=== PATIENT | female | born 1995 | race Caucasian/White ===

== ENCOUNTER 2016-05-15 11:57 | Emergency (ER) | payer OTHER ==
--- NOTE | 2016-05-15 15:25 | EDDOCDS ---
Nurse's Notes [facility] Name: Irina Vincent Age: 20 yrs Sex: Female : 1995 Arrival Date: 05/15/2016 Time: 11:57 Bed TR8 Private MD: Sawyer Haines FPA Diagnosis: Labyrinthitis Presentation: 05/15 12:03 Presenting complaint: Patient states: Intermittent headaches since Friday with nausea mlb1 and double vision also reports "wooshing in ears for the past two months" seen at [facility] on Friday sent here by PCP for "MRI". This patient has no additional risk factors. Adult Sepsis Screening: The patient does not have new or worsening altered mentation. Patient's respiratory rate is less than 22. Systolic blood pressure is greater than 100. Patient has a qSOFA score of 0- Negative Sepsis Screen. Suicide/Homicide risk assessment- the patient denies having any suicidal and/or homicidal ideations and does not present with any other emotional, behavioral or mental health complaints. 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 Transition of care: patient was not received from another setting of care. 12:03 Acuity: DANIELLE Level 3 mlb1 12:03 Method Of Arrival: Walkin/Carried/Asstd mlb1 Triage Assessment: 12:09 Headache History: This patient has a history of headaches and the character of this mlb1 headache is like all previous headaches. General: Appears in no apparent distress, Behavior is appropriate for age, cooperative. Pain: Denies pain. HIV screening NA for this visit Offered previously. Neurological: Level of Consciousness is awake, alert, Reports blurred vision dizziness. 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 benzonatate 100 mg oral cap 1 cap 3 times per day 2. Excedrin Migraine 250-250-65 mg Oral tab as needed (Last dose: 05/15/2016 10:30) - PMHx: none; - PSHx: none; - Social history: Smoking status: Patient states was never smoker of tobacco. No barriers to communication noted, The patient speaks fluent Moroccan, Speaks appropriately for age. - Family history: Not pertinent. - : The pt / caregiver states he / she is not on anticoagulants. Home medication list is obtained from the patient. - Exposure Risk Screening:: None identified. Screenin:23 Screening information is obtained from the patient. Fall risk: No risks identified. mcp Assistance ADL's: requires no assistance with activities of daily living. Abuse/DV Screen: The patient / caregiver reports he/she is: not in a situation that causes fear, pain or injury. Nutritional screening: No deficits noted. Advance Directives: There is no active DNR order. home support is adequate. Assessment: 15:22 General: Appears in no apparent distress, comfortable, Behavior is cooperative. Pain: mcp Location: head Pain currently is 6 out of 10 on a pain scale. Neurological: Level of Consciousness is awake, alert, Oriented to person, place, time, Moves all extremities. Speech is normal, Reports headache. Respiratory: Airway is patent Respiratory effort is even, unlabored. Derm: Skin is pink, warm & dry. Vital Signs: 12:00 BP 155 / 98; Pulse 89; Resp 18; Temp 97.0; Pulse Ox 99% ; Weight 86.18 kg; Height 5 ft. elp 4 in. (162.56 cm); 12:00 Body Mass Index 32.61 (86.18 kg, 162.56 cm) elp Vitals: 12:00 Log In Time: May 15, 2016 at 11:59. el ED Course: 11:58 Patient visited by Sheeba Lopez PCA. elp 11:58 Patient moved to Waiting elp 12:00 Patient visited by Sheeba Lopez PCA. elp 12:00 Sawyer Haines is Private Physician. elp 12:00 Patient moved to Pre RCE elp 12:03 Patient visited by Sawyer Broussard RN. mlb1 12:07 Triage Initiated mlb1 12:11 Patient visited by Sawyer Broussard RN. mlb1 14:29 Patient moved to Triage 1 cmb 14:55 [facility] btw 14:55 Yari Siegel MD is Attending Physician. btw 14:55 Patient visited by Ed Ashley PA. btw 15:23 The patient / caregiver is instructed regarding the plan of care and ED course. Patient mcp has correct armband on for positive identification. Bed in low position. Call light in reach. Adult w/ patient. 15:23 Patient moved to TR8 cmb 15:23 No IV's were initiated during this patient's visit. No procedures done that require mcp assistance. 15:24 [facility] Payment Agreement was scanned into [employer] and attached to record. trevin Order Results: There are currently no results for this order. Outcome: 15:15 Discharge ordered by Provider. btw 15:23 Discharge Assessment: patient administered narcotics - no. The following High Risk [facility] Discharge criteria are identified: None. Discharged to home ambulatory, with parent. Condition: stable. Discharge instructions given to patient, parents Instructed on discharge instructions, follow up and referral plans. medication usage, Demonstrated understanding of instructions, medications, Pt was receptive of discharge instructions/ teaching. Prescriptions given X 2. No special radiology studies were completed. Property sent home with patient. 15:24 Patient left the ED. [facility] Signatures: Estefani Jackson, RN Sawyer Warren mcp RN RN mlb1 Ed Ashely PA PA btw Soumya Nunez Erin, PCA PCA elp Beck, Gabriela gjb ROBERT
--- NOTE | 2016-05-15 15:25 | EDDOCDS ---
Physician Documentation [facility] Name: Irina Vincent Age: 20 yrs Sex: Female : 1995 Arrival Date: 05/15/2016 Time: 11:57 Bed TR8 Private MD: Sawyer Haines FPA Disposition: 05/15/16 15:15 Discharged to Home/Self Care. Impression: Labyrinthitis. - Condition is Stable. - Discharge Instructions: Labyrinthitis, [id number]. - Prescriptions for Medrol (Armand) 4 mg Oral Tablets, Dose Pack - take 1 Pack by ORAL route as directed - follow package instructions; 1 packet. azelastine 137 mcg (0.1 %) Nasal Aerosol, [place] - spray 2 spray by INTRANASAL route 2 times per day each nostril; 1 bottle. - Medication Reconciliation, Local Pharmacy Hours form. - Follow up: Private Physician; When: Call to arrange an appointment; Reason: Further diagnostic work-up, Recheck today's complaints, Continuance of care. - Problem is new. - Symptoms are unchanged. Historical: - Allergies: no known allergies; - Home Meds: 1. benzonatate 100 mg oral cap 1 cap 3 times per day 2. Excedrin Migraine 250-250-65 mg Oral tab as needed (Last dose: 05/15/2016 10:30) - PMHx: none; - PSHx: none; - Social history: Smoking status: Patient states was never smoker of tobacco. No barriers to communication noted, The patient speaks fluent Occitan, Speaks appropriately for age. - Family history: Not pertinent. - : The pt / caregiver states he / she is not on anticoagulants. Home medication list is obtained from the patient. - Exposure Risk Screening:: None identified. 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 4 in. (162.56 cm); 12:00 Body Mass Index 32.61 (86.18 kg, 162.56 cm) elp MDM: 15:24 [facility] Payment Agreement was scanned into [employer] and attached to record. gjb 15:24 Financial registration complete. trevin Signatures: Estefani Jackson RN RN mcp Sawyer Broussard RN RN mlb1 Ed Ashley PA PA btw Beck, Gabriela gjb The chart was reviewed and I authenticate all verbal orders and agree with the evaluation and treatment provided.Attachments: 15:24 [facility] Payment Agreement trevin MTDD
--- NOTE | 2016-05-17 16:25 | EDDOCDS ---
Physician Documentation [facility] Name: Irina Vincent Age: 20 yrs Sex: Female : 1995 Arrival Date: 05/15/2016 Time: 11:57 Bed TR8 Private MD: Sawyer Haines FPA Disposition: 05/15/16 15:15 Discharged to Home/Self Care. Impression: Labyrinthitis. - Condition is Stable. - Discharge Instructions: Labyrinthitis, [id number]. - Prescriptions for Medrol (Armand) 4 mg Oral Tablets, Dose Pack - take 1 Pack by ORAL route as directed - follow package instructions; 1 packet. azelastine 137 mcg (0.1 %) Nasal Aerosol, [place] - spray 2 spray by INTRANASAL route 2 times per day each nostril; 1 bottle. - Medication Reconciliation, Local Pharmacy Hours form. - Follow up: Private Physician; When: Call to arrange an appointment; Reason: Further diagnostic work-up, Recheck today's complaints, Continuance of care. - Problem is new. - Symptoms are unchanged. Historical: - Allergies: no known allergies; - Home Meds: 1. benzonatate 100 mg oral cap 1 cap 3 times per day 2. Excedrin Migraine 250-250-65 mg Oral tab as needed (Last dose: 05/15/2016 10:30) - PMHx: none; - PSHx: none; - Social history: Smoking status: Patient states was never smoker of tobacco. No barriers to communication noted, The patient speaks fluent [place], Speaks appropriately for age. - Family history: Not pertinent. - : The pt / caregiver states he / she is not on anticoagulants. Home medication list is obtained from the patient. - Exposure Risk Screening:: None identified. 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 4 in. (162.56 cm); 12:00 Body Mass Index 32.61 (86.18 kg, 162.56 cm) elp MDM: 15:24 [facility] Payment Agreement was scanned into [employer] and attached to record. gjb 15:24 Financial registration complete. gjb 05/16 12:18 T-Sheet-- Draft Copy was scanned into [employer] and attached to record. gb Signatures: Estefani Jackson, RN RN Abbie Rendon, Price Reg Sawyer Leslie RN RN mlb1 Ed Ashley PA PA btw Beck, Gabriela gj The chart was reviewed and I authenticate all verbal orders and agree with the evaluation and treatment provided.Attachments: 05/15 15:24 [facility] [place] b 05/16 12:18 T-Sheet-- Draft Copy gb Chart Complete MTDD
--- NOTE | 2016-05-17 16:25 | EDDOCDS ---
Nurse's Notes [facility] Name: Irina Vincent Age: 20 yrs Sex: Female : 1995 Arrival Date: 05/15/2016 Time: 11:57 Bed TR8 Private MD: Sawyer Haines FPA Diagnosis: Labyrinthitis Presentation: 05/15 12:03 Presenting complaint: Patient states: Intermittent headaches since Friday with nausea mlb1 and double vision also reports "wooshing in ears for the past two months" seen at [facility] on Friday sent here by PCP for "MRI". This patient has no additional risk factors. Adult Sepsis Screening: The patient does not have new or worsening altered mentation. Patient's respiratory rate is less than 22. Systolic blood pressure is greater than 100. Patient has a qSOFA score of 0- Negative Sepsis Screen. Suicide/Homicide risk assessment- the patient denies having any suicidal and/or homicidal ideations and does not present with any other emotional, behavioral or mental health complaints. 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 Transition of care: patient was not received from another setting of care. 12:03 Acuity: DANIELLE Level 3 mlb1 12:03 Method Of Arrival: Walkin/Carried/Asstd mlb1 Triage Assessment: 12:09 Headache History: This patient has a history of headaches and the character of this mlb1 headache is like all previous headaches. General: Appears in no apparent distress, Behavior is appropriate for age, cooperative. Pain: Denies pain. HIV screening NA for this visit Offered previously. Neurological: Level of Consciousness is awake, alert, Reports blurred vision dizziness. 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 benzonatate 100 mg oral cap 1 cap 3 times per day 2. Excedrin Migraine 250-250-65 mg Oral tab as needed (Last dose: 05/15/2016 10:30) - PMHx: none; - PSHx: none; - Social history: Smoking status: Patient states was never smoker of tobacco. No barriers to communication noted, The patient speaks fluent Botswanan, Speaks appropriately for age. - Family history: Not pertinent. - : The pt / caregiver states he / she is not on anticoagulants. Home medication list is obtained from the patient. - Exposure Risk Screening:: None identified. Screenin:23 Screening information is obtained from the patient. Fall risk: No risks identified. mcp Assistance ADL's: requires no assistance with activities of daily living. Abuse/DV Screen: The patient / caregiver reports he/she is: not in a situation that causes fear, pain or injury. Nutritional screening: No deficits noted. Advance Directives: There is no active DNR order. home support is adequate. Assessment: 15:22 General: Appears in no apparent distress, comfortable, Behavior is cooperative. Pain: mcp Location: head Pain currently is 6 out of 10 on a pain scale. Neurological: Level of Consciousness is awake, alert, Oriented to person, place, time, Moves all extremities. Speech is normal, Reports headache. Respiratory: Airway is patent Respiratory effort is even, unlabored. Derm: Skin is pink, warm & dry. Vital Signs: 12:00 BP 155 / 98; Pulse 89; Resp 18; Temp 97.0; Pulse Ox 99% ; Weight 86.18 kg; Height 5 ft. elp 4 in. (162.56 cm); 12:00 Body Mass Index 32.61 (86.18 kg, 162.56 cm) elp Vitals: 12:00 Log In Time: May 15, 2016 at 11:59. el ED Course: 11:58 Patient visited by Sheeba Lopez PCA. elp 11:58 Patient moved to Waiting elp 12:00 Patient visited by Sheeba Lopez PCA. elp 12:00 Sawyer Haines is Private Physician. elp 12:00 Patient moved to Pre RCE elp 12:03 Patient visited by Sawyer Broussard RN. mlb1 12:07 Triage Initiated mlb1 12:11 Patient visited by Sawyer Brosusard RN. mlb1 14:29 Patient moved to Triage 1 cmb 14:55 [facility]. btw 14:55 Yari Siegel MD is Attending Physician. btw 14:55 Patient visited by Ed Ashley PA. btw 15:23 The patient / caregiver is instructed regarding the plan of care and ED course. Patient mcp has correct armband on for positive identification. Bed in low position. Call light in reach. Adult w/ patient. 15:23 Patient moved to TR8 cmb 15:23 No IV's were initiated during this patient's visit. No procedures done that require mcp assistance. 15:24 [facility] [place] was scanned into [employer] and attached to record. gjromel 15:31 Patient name changed from Irina\\S\\A\\S\\Cary\\S\\ to Irina\\S\\ \\S\\Cary. EDMS 05/16 12:18 T-Sheet-- Draft Copy was scanned into [employer] and attached to record. gb Order Results: There are currently no results for this order. Outcome: 05/15 15:15 Discharge ordered by Provider. btw 15:23 Discharge Assessment: patient administered narcotics - no. The following High Risk [facility] Discharge criteria are identified: None. Discharged to home ambulatory, with parent. Condition: stable. Discharge instructions given to patient, parents Instructed on discharge instructions, follow up and referral plans. medication usage, Demonstrated understanding of instructions, medications, Pt was receptive of discharge instructions/ teaching. Prescriptions given X 2. No special radiology studies were completed. Property sent home with patient. 15:24 Patient left the ED. [facility] Signatures: Dis[facility] Estefani Jackson, RN RN Abbie Rendon, Sawyer Allen RN RN mlb1 Ed Ashley PA PA btw Soumya Nunez Erin, PCA PCA elp Beck, Gabriela [facility] Chart Complete MTDD
--- NOTE | 2016-05-17 16:25 | EDDOCDS ---
Physician Documentation [facility] Name: Irina Vincent Age: 20 yrs Sex: Female : 1995 Arrival Date: 05/15/2016 Time: 11:57 Bed TR8 Private MD: Sawyer Haines FPA Disposition: 05/15/16 15:15 Discharged to Home/Self Care. Impression: Labyrinthitis. - Condition is Stable. - Discharge Instructions: Labyrinthitis, [id number]. - Prescriptions for Medrol (Armand) 4 mg Oral Tablets, Dose Pack - take 1 Pack by ORAL route as directed - follow package instructions; 1 packet. azelastine 137 mcg (0.1 %) Nasal Aerosol, [place] - spray 2 spray by INTRANASAL route 2 times per day each nostril; 1 bottle. - Medication Reconciliation, Local Pharmacy Hours form. - Follow up: Private Physician; When: Call to arrange an appointment; Reason: Further diagnostic work-up, Recheck today's complaints, Continuance of care. - Problem is new. - Symptoms are unchanged. Historical: - Allergies: no known allergies; - Home Meds: 1. benzonatate 100 mg oral cap 1 cap 3 times per day 2. Excedrin Migraine 250-250-65 mg Oral tab as needed (Last dose: 05/15/2016 10:30) - PMHx: none; - PSHx: none; - Social history: Smoking status: Patient states was never smoker of tobacco. No barriers to communication noted, The patient speaks fluent Polish, Speaks appropriately for age. - Family history: Not pertinent. - : The pt / caregiver states he / she is not on anticoagulants. Home medication list is obtained from the patient. - Exposure Risk Screening:: None identified. 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 4 in. (162.56 cm); 12:00 Body Mass Index 32.61 (86.18 kg, 162.56 cm) elp MDM: 15:24 [facility] Payment Agreement was scanned into [employer] and attached to record. gjb 15:24 Financial registration complete. gjb 05/16 12:18 T-Sheet-- Draft Copy was scanned into [employer] and attached to record. gb Signatures: Estefani Jackson, RN RN Abbie Rendon, Price Reg Sawyer Leslie RN RN mlb1 Ed Ashley PA PA btw Beck, Gabriela gj The chart was reviewed and I authenticate all verbal orders and agree with the evaluation and treatment provided.Attachments: 05/15 15:24 [facility] [place] Payment Agreement b 05/16 12:18 T-Sheet-- Draft Copy gb Chart Complete MTDD
== END 2016-05-15 15:24 | disposition home or self-care (01) ==
LOC: M ED 11:57
DX: H83.09 Labyrinthitis, unspecified ear (principal); Z79.899 Other long term (current) drug therapy

== ENCOUNTER 2016-05-20 16:42 | Emergency (ER) | payer OTHER ==
--- NOTE | 2016-05-20 20:00 | REPUSA ---
MRV of the brain Clinical history: papilledema, blurred vision. Technique: time of flight MRV images of the brain were obtained without administration of contrast. No comparison is available. Findings: The venous structures demonstrate normal caliber and contour. No intraluminal thrombus is a ppreciated. There is no discrete evidence of clinically significant stenosis or obstruction. Impression: Unremarkable MRV examination of the brain.
--- NOTE | 2016-05-20 20:00 | REPUSA ---
MRA of the brain Clinical history: blurred vision. Technique: Yquh-eq-joyldy MRA images of the brain were obtained without administration of contrast. 3 -D MIP images were also obtained. Findings: The vascular structures extending from the distal carotid and vertebrobasilar arterial syst ems, through the tetlin of [place], demonstrate normal caliber and contour. There is no evidence of an eurysm, stenosis, or thrombosis. Impression: Unremarkable MRA examination of the brain.
--- NOTE | 2016-05-20 20:10 | REPUSA ---
MRI of the brain without contrast Clinical history: blurred vision. Comparison: none. Technique: Multiecho multiplanar MRI images of the brain were obtained without administration of cont rast. Diffusion weighted images with ADC mapping was also obtained. Findings: The ventricles and sulci are symmetric bilaterally. The brain parenchyma demonstrates uniform and nor mal signal on all sequences. There is no midline shift, mass effect, or extra-axial fluid collection. The midline intracranial structures do not demonstrate any gross abnormalities. The cervical cranial junction is intact. The orbits are unremarkable. The visualized paranasal sinuses and mastoid air ce lls are clear. The osseous structures and superficial soft tissues are unremarkable. The vascular str uctures demonstrate appropriate flow voids. Impression: Normal MRI of the Brain.
[2016-05-20] MEDS ORDERED: AcetaZOLAMIDE 500MG INJECTION (J1120) IV ONE (23:45)
[2016-05-21 00:49] LABS: RBC CSF AUTO 2878 /mm3 (0-0); WBC CSF AUTO 32 /mm3 (0-10)
[2016-05-21 00:51] LABS: APPEARANCE, CSF CLEAR (CLEAR); COLOR, CSF COLORLESS (COLORLESS); CSF DIFF IF INDICATED? YES (NO); CSF TUBE# CELL CNT TUBE 1
[2016-05-21 00:53] LABS: CSF DILUENT LOT # 6109
[2016-05-21 00:54] LABS: GLUCOSE CSF 51 MG/DL (40-75)
[2016-05-21 01:05] LABS: ANION GAP 11 MEQ/L (8-16); BLOOD UREA NITROGEN 11 MG/DL (7-18); CALCIUM LEVEL 8.1 MG/DL (8.5-10.1); CARBON DIOXIDE LEVEL 25 MEQ/L (21-32); CHLORIDE LEVEL 102 MEQ/L (98-107); GLUCOSE, FASTING 186 MG/DL (70-105); POTASSIUM SERUM 3.4 MEQ/L (3.5-5.1); SODIUM LEVEL 138 MEQ/L (136-145)
--- NOTE | 2016-05-21 02:59 | EDDOCDS ---
Physician Documentation [facility] [place] [facility] Name: Irina Vincent Age: 20 yrs Sex: Female : 1995 Arrival Date: 05/20/2016 Time: 16:42 Bed 4 Private MD: Sawyer Haines FPA Disposition: 05/20 19:24 I have independently interviewed and examined the patient, and I agree with the pc investigation, diagnosis and treatment plan as documented by the Resident. Disposition: 05/21/16 02:33 Discharged to Home/Self Care. Impression: Benign intracranial hypertension. - Condition is Stable. - Discharge Instructions: Idiopathic Intracranial Hypertension. - Prescriptions for acetazolamide 250 mg Oral Tablet - take 2 tablet by ORAL route 2 times per day; 60 tablet. - Medication Reconciliation, Local Pharmacy Hours form. - Follow up: Enriqueta Ramirez; When: Call to arrange an appointment; Reason: Continuance of care. Follow up: Private Physician; When: Call to arrange an appointment; Reason: Continuance of care. - Problem is an acute exacerbation. - Symptoms have improved. Historical: - Allergies: no known allergies; - Home Meds: 1. Excedrin Migraine 250-250-65 mg Oral tab as needed - PMHx: none; - PSHx: none; - Social history: Smoking status: Patient/guardian denies using No barriers to communication noted, The patient speaks fluent Slovak. - Family history: Not pertinent. - : The pt / caregiver states he / she is not on anticoagulants. Home medication list is obtained from the patient. - Exposure Risk Screening:: None identified. 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 4 in. (162.56 cm) (R); Pain 3/10; 20:18 BP 144 / 75; Pulse 81; Resp 18; Pulse Ox 98% on R/A; mgs 22:40 BP 138 / 76 (auto/); mgs 22:42 Pulse 92 MON; Pulse Ox 98% ; mgs 22:54 BP 136 / 75 (auto/); mgs 22:54 Pulse 84 MON; Pulse Ox 98% ; mgs 23:09 BP 137 / 73 (auto/); mgs 23:09 Pulse 94 MON; Pulse Ox 96% ; mgs 23:24 BP 118 / 62 (auto/); mgs 23:24 Pulse 84 MON; Pulse Ox 96% ; mgs 23:39 BP 123 / 66 (auto/); mgs 23:39 Pulse 78 MON; Pulse Ox 97% ; mgs 23:54 BP 130 / 69 (auto/); mgs 23:54 Pulse 78 MON; Pulse Ox 96% ; mgs 05/21 00:09 BP 122 / 65 (auto/); mgs 00:09 Pulse 78 MON; Pulse Ox 97% ; mgs 00:24 Pulse 76 MON; Pulse Ox 98% ; mgs 00:24 BP 121 / 67 (auto/); mgs 00:39 BP 125 / 64 (auto/); mgs 00:39 Pulse 80 MON; Pulse Ox 97% ; mgs 00:54 BP 137 / 66 (auto/); mgs 00:56 Pulse 82 MON; Pulse Ox 98% ; mgs 01:09 BP 131 / 67 (auto/); mgs 01:09 Pulse 72 MON; Pulse Ox 97% ; mgs 01:24 BP 128 / 67 (auto/); mgs 01:24 Pulse 76 MON; Pulse Ox 96% ; mgs 01:39 BP 126 / 70 (auto/); mgs 01:39 Pulse 94 MON; Pulse Ox 96% ; mgs 01:54 BP 128 / 68 (auto/); mgs 01:54 Pulse 92 MON; Pulse Ox 96% ; mgs 02:36 BP 121 / 62; Pulse 87; Resp 18; Temp 97.8(TE); Pulse Ox 96% on R/A; Pain 0/10; annie 05/20 16:45 Body Mass Index 32.61 (86.18 kg, 162.56 cm) gr2 MDM: 05/20 18:11 MRI Screening Tool - Place on chart, inform RN ordered. jo4 18:11 -MRA-Brain without contrast Ordered. EDMS 18:12 -MRI-Brain without Ordered. EDMS 18:14 Misc Authorization Manager Order ordered. jo4 18:16 MRI Screening Tool - Place on chart, inform RN complete. mk4 18:18 Misc Authorization Manager Order complete. jlf 18:19 MRA BRAIN W/O CONTRAST Ordered. EDMS 18:36 Financial registration complete. zo 20:09 [facility] Payment Agreement was scanned into Tracky and attached to record. zo 22:06 UCG by Nursing ordered. mm11 23:28 BMP Ordered. EDMS 23:28 Magnesium Level Ordered. EDMS 23:35 acetaZOLAMIDE 500 mg IV at calculated rate once ordered. mm11 23:37 Written Provider Order was scanned into [employer] and attached to record. ml3 23:41 Other: PROGRESS NOTE was scanned into Tracky and attached to record. ml3 23:42 IV Saline Lock ordered. mgs 23:42 d5-1/2 NS 500 ml blolus once 500 ml IV at bolus once ordered. mgs 23:42 d5-1/2 NS 500 ml at 150 ml/hr 500 ml IV at 150 mL/hr once ordered. mgs 05/21 00:01 C-PEPTIDE Ordered. EDMS 00:01 CELL COUNT/DIFF CSF Ordered. EDMS 00:01 CSF GLUCOSE Ordered. EDMS 00:01 CSF T PROTEIN Ordered. EDMS 00:01 CSF CULTURE AND GRAM STAIN Ordered. EDMS 00:08 Written Provider Order was scanned into Track[employer] and attached to record. ml3 00:20 INSULIN LEVEL Ordered. EDMS Point of Care Testing: Urine : 05/20 22:23 hCG Reading: Negative; mgs 22:23 Exp: 01/2018; Lot #: [id number]; mgs Ranges: Administered Medications: 05/21 00:32 Drug: acetaZOLAMIDE 500 mg Route: IV; Rate: calculated rate; Site: right antecubital; mgs 00:32 Drug: d5-1/2 NS 500 ml blolus once 500 ml Route: IV; Rate: bolus; Site: right mgs antecubital; 00:52 Drug: d5-1/2 NS 500 ml at 150 ml/hr 500 ml Route: IV; Rate: 150 mL/hr; Site: right mgs antecubital; Signatures: Dispatcher MedHost EDNH Osman Mahajan MD MD pc Scott, Debra, RN RN La Nena Claudio, [facility] ml3 Oj Moreira Matthew, DO DO mm11 Li Copeland RN RN mk4 Jeison Wright, ADULT SPECIALIST ADULT SPECIALIST jlf Karan Jay,RN RN s Fe Allen DO DO jo4 The chart was reviewed and I authenticate all verbal orders and agree with the evaluation and treatment provided.Attachments: 05/20 20:09 [facility] Payment Agreement zo 23:37 Written Provider Order ml3 05/21 00:08 Written Provider Order ml3 MTDD
--- NOTE | 2016-05-21 02:59 | EDDOCDS ---
Nurse's Notes [facility] Name: Irina Vincent Age: 20 yrs Sex: Female : 1995 Arrival Date: 05/20/2016 Time: 16:42 Bed 4 Private MD: Sawyer Haines FPA Diagnosis: Benign intracranial hypertension Presentation: 05/20 16:47 Presenting complaint: Patient states: Pt sent from Dr Lazo office pt has papillary dls edema with blurred vision. Sent to ED for further testing. Adult Sepsis Screening: The patient does not have new or worsening altered mentation. Patient's respiratory rate is less than 22. Systolic blood pressure is greater than 100. Patient has a qSOFA score of 0- Negative Sepsis Screen. Suicide/Homicide risk assessment- the patient denies having any suicidal and/or homicidal ideations and does not present with any other emotional, behavioral or mental health complaints. Status: Patient is not a equipment service technician or dependent. Transition of care: patient was not received from another setting of care. 16:47 Acuity: DANIELLE Level 3 dls 16:47 Method Of Arrival: Walkin/Carried/Asstd dls Triage Assessment: 16:49 General: Appears in no apparent distress, well developed, well nourished, well groomed, dls Behavior is cooperative. Pain: Denies pain. HIV screening NA for this visit Offered previously. 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 Excedrin Migraine 250-250-65 mg Oral tab as needed - PMHx: none; - PSHx: none; - Social history: Smoking status: Patient/guardian denies using No barriers to communication noted, The patient speaks fluent Hungarian. - Family history: Not pertinent. - : The pt / caregiver states he / she is not on anticoagulants. Home medication list is obtained from the patient. - Exposure Risk Screening:: None identified. Screenin:10 Screening information is obtained from the patient. Fall risk: No risks identified. mk4 Assistance ADL's: requires no assistance with activities of daily living. Abuse/DV Screen: The patient / caregiver reports he/she is: not in a situation that causes fear, pain or injury. Nutritional screening: No deficits noted. Advance Directives: Currently, there is no health care proxy. There is no active DNR order. There is no living will. There is no Power of Systems Navigator. Advance directive information has not previously been placed in an [facility] medical record. home support is adequate. Assessment: 17:10 General: Appears in no apparent distress. mk4 18:17 Neurological: Level of Consciousness is awake, alert, Oriented to person, place, time. mk4 Respiratory: Airway is patent Respiratory effort is even, unlabored, Respiratory pattern is regular. 18:19 Pain: Location: headache. mk4 18:52 General: Appears in no apparent distress, dr ramirez in examining pt. Neurological: mk4 Level of Consciousness is awake, alert, Oriented to person, place, time. Respiratory: Airway is patent Respiratory effort is even, unlabored, Respiratory pattern is regular. 18:54 General: awaiting MRI. mk4 20:16 Adult Sepsis Screening: The patient does not have new or worsening altered mentation. mgs Patient's respiratory rate is less than 22. Systolic blood pressure is greater than 100. Patient has a qSOFA score of 0- Negative Sepsis Screen. General: Appears in no apparent distress, Behavior is cooperative. Pain: Denies pain. Neurological: Level of Consciousness is awake, alert, Oriented to person, place, time, Signal Operator Technical are equal bilaterally Moves all extremities. Speech is normal, Facial symmetry appears normal, Facial symmetry: tongue is midline, Pupils are PERRLA. Cardiovascular: Capillary refill < 3 seconds. Respiratory: Airway is patent Respiratory effort is even, unlabored, Respiratory pattern is regular, symmetrical. Derm: Skin is pink, warm & dry. 21:29 General: Appears in no apparent distress, Behavior is appropriate for age, cooperative. mgs Neurological: Level of Consciousness is awake, alert, Oriented to person, place, time. Cardiovascular: Capillary refill < 3 seconds. Respiratory: Airway is patent Respiratory effort is even, unlabored, Respiratory pattern is regular, symmetrical. Derm: Skin is pink, warm & dry. 22:24 General: Appears in no apparent distress, Behavior is appropriate for age, cooperative. mgs Neurological: Level of Consciousness is awake, alert. Cardiovascular: Capillary refill < 3 seconds. Respiratory: Airway is patent Respiratory effort is even, unlabored, Respiratory pattern is regular, symmetrical. Derm: Skin is pink, warm & dry. 05/21 00:14 Adult Sepsis Screening: The patient does not have new or worsening altered mentation. mgs Patient's respiratory rate is less than 22. Systolic blood pressure is greater than 100. Patient has a qSOFA score of 0- Negative Sepsis Screen. General: Appears in no apparent distress, Behavior is appropriate for age, cooperative. Pain: Denies pain. Neurological: Level of Consciousness is awake, alert, Oriented to person, place, time. Cardiovascular: Capillary refill < 3 seconds. Respiratory: Airway is patent Respiratory effort is even, unlabored, Respiratory pattern is regular, symmetrical. Derm: Skin is pink, warm & dry. 01:42 General: Appears in no apparent distress, Behavior is cooperative. Neurological: Level mgs of Consciousness is awake, alert, Oriented to person, place, time. Cardiovascular: Capillary refill < 3 seconds. Respiratory: Airway is patent Respiratory effort is even, unlabored, Respiratory pattern is regular, symmetrical. Derm: Skin is pink, warm & dry. 02:56 General: Appears in no apparent distress, Behavior is appropriate for age, cooperative. mgs Neurological: Level of Consciousness is awake, alert, Oriented to person, place, time. Cardiovascular: Capillary refill < 3 seconds. Respiratory: Airway is patent Respiratory effort is even, unlabored, Respiratory pattern is regular, symmetrical. Derm: Skin is pink, warm & dry. Vital Signs: 05/20 16:45 BP 145 / 80; Pulse 97; Resp 18 S; Temp 96.1(O); Pulse Ox 97% on R/A; Weight 86.18 kg gr2 (R); Height 5 ft. 4 in. (162.56 cm) (R); Pain 3/10; 20:18 BP 144 / 75; Pulse 81; Resp 18; Pulse Ox 98% on R/A; mgs 22:40 BP 138 / 76 (auto/); mgs 22:42 Pulse 92 MON; Pulse Ox 98% ; mgs 22:54 BP 136 / 75 (auto/); mgs 22:54 Pulse 84 MON; Pulse Ox 98% ; mgs 23:09 BP 137 / 73 (auto/); mgs 23:09 Pulse 94 MON; Pulse Ox 96% ; mgs 23:24 BP 118 / 62 (auto/); mgs 23:24 Pulse 84 MON; Pulse Ox 96% ; mgs 23:39 BP 123 / 66 (auto/); mgs 23:39 Pulse 78 MON; Pulse Ox 97% ; mgs 23:54 BP 130 / 69 (auto/); mgs 23:54 Pulse 78 MON; Pulse Ox 96% ; mgs 0131 00:09 BP 122 / 65 (auto/); mgs 00:09 Pulse 78 MON; Pulse Ox 97% ; mgs 00:24 Pulse 76 MON; Pulse Ox 98% ; mgs 00:24 BP 121 / 67 (auto/); mgs 00:39 BP 125 / 64 (auto/); mgs 00:39 Pulse 80 MON; Pulse Ox 97% ; mgs 00:54 BP 137 / 66 (auto/); mgs 00:56 Pulse 82 MON; Pulse Ox 98% ; mgs 01:09 BP 131 / 67 (auto/); mgs 01:09 Pulse 72 MON; Pulse Ox 97% ; mgs 01:24 BP 128 / 67 (auto/); mgs 01:24 Pulse 76 MON; Pulse Ox 96% ; mgs 01:39 BP 126 / 70 (auto/); mgs 01:39 Pulse 94 MON; Pulse Ox 96% ; mgs 01:54 BP 128 / 68 (auto/); mgs 01:54 Pulse 92 MON; Pulse Ox 96% ; mgs 02:36 BP 121 / 62; Pulse 87; Resp 18; Temp 97.8(TE); Pulse Ox 96% on R/A; Pain 0/10; annie 05/20 16:45 Body Mass Index 32.61 (86.18 kg, 162.56 cm) gr2 Vitals: 05/20 16:45 Log In Time: May 20, 2016 at 16:45. gr2 ED Course: 16:44 Patient visited by Nellie Snyder. gr2 16:44 Patient moved to Waiting gr2 16:45 Sawyer Haines is Private Physician. gr2 16:45 Patient visited by Nellie Snyder. gr2 16:46 Patient moved to Pre RCE gr2 16:49 Triage Initiated dls 16:51 Patient moved to 15 dls 16:58 [facility] jo4 16:58 Osman Mahajan MD is Attending Physician. jo4 17:10 The patient / caregiver is instructed regarding the plan of care and ED course. mk4 17:16 Patient visited by Li Copeland RN. mk4 17:45 Patient visited by Fe Allne DO. jo4 17:45 Fe Allen [facility] jo4 17:45 Patient visited by Fe Allen DO. jo4 18:16 Patient visited by Li Copeland RN. mk4 18:48 Patient visited by Osman Mahajan MD. pc 18:56 Karan Jay,ELGIN is Primary Nurse. mgs 19:06 Patient moved to MRI annie 19:36 Attending Physician role handed off by Osman Mahajan MD mm11 19:36 Karan Vazquez DO is Attending Physician. mm11 20:05 MRA BRAIN W/O CONTRAST Returned. EDMS 20:05 -MRA-Brain without contrast Returned. EDMS 20:09 [facility] Payment Agreement was scanned into Strong[employer] and attached to record. zo 20:10 Patient name changed from Iirna\S\\S\Melisa\S\ to Irina\S\ \S\[place]. EDMS 20:10 Patient visited by Jayashree Crawford PCA. annie 20:10 Patient moved to 15 annie 20:19 Patient visited by Karan Jay RN. mgs 20:49 Patient visited by Karan Vazquez DO. mm11 20:53 -MRI-Brain without Returned. EDMS 21:30 Patient visited by Karan Jay RN. mgs 22:24 Patient visited by Karan Jay RN. mgs 22:24 Patient moved to 4 apr 23:36 Patient visited by Karan Vazquez DO. mm11 23:37 Written Provider Order was scanned into [employer] and attached to record. ml3 23:41 Other: PROGRESS NOTE was scanned into [employer] and attached to record. ml3 05/21 00:01 C-PEPTIDE Sent. mgs 00:03 CSF CULTURE AND GRAM STAIN Sent. mgs 00:03 CSF T PROTEIN Sent. mgs 00:03 CSF GLUCOSE Sent. mgs 00:03 CELL COUNT/DIFF CSF Sent. mgs 00:08 Written Provider Order was scanned into [employer] and attached to record. ml3 00:15 Patient visited by Karan Jay RN. mgs 00:32 INSULIN LEVEL Sent. mgs 00:33 Patient visited by Karan Jay RN. mgs 00:33 Inserted saline lock: 20 gauge in right antecubital area and blood collected. The mgs patient tolerated the procedure well. 01:33 Patient visited by Jayashree Crawford PCA. annie 01:42 Patient visited by Karan Jay RN. mgs 02:33 Patient visited by Karan Vazquez DO. mm11 02:33 Enriqueta Ramirez is Referral Physician. mm11 02:37 Patient visited by Jayashere Crawford PCA. annie 02:56 Discontinued IV lock intact, bleeding controlled, pressure dressing applied, No mgs redness/swelling at site. No procedures done that require assistance. Administered Medications: 00:32 Drug: acetaZOLAMIDE 500 mg Route: IV; Rate: calculated rate; Site: right antecubital; mgs 00:32 Drug: d5-1/2 NS 500 ml blolus once 500 ml Route: IV; Rate: bolus; Site: right mgs antecubital; 00:52 Drug: d5-1/2 NS 500 ml at 150 ml/hr 500 ml Route: IV; Rate: 150 mL/hr; Site: right mgs antecubital; Point of Care Testing: Urine : 05/20 22:23 hCG Reading: Negative; mgs 22:23 Exp: 01/2018; Lot #: [id number]; mgs Ranges: Order Results: Lab Order: BMP; SPEC'M 05/21/16 00:30 Test: GLUCOSE, FASTING; Value: 186; Range: 70-105; Abnormal: Above high normal; Units: MG/DL; Status: F Test: BLOOD UREA NITROGEN; Value: 11; Range: 7-18; Units: MG/DL; Status: F Test: CREATININE FOR GFR; Value: 0.70; Range: 0.55-1.02; Units: MG/DL; Status: F Test: SODIUM LEVEL; Value: 138; Range: 136-145; Units: MEQ/L; Status: F Test: POTASSIUM SERUM; Value: 3.4; Range: 3.5-5.1; Abnormal: Below low normal; Units: MEQ/L; Status: F Test: CHLORIDE LEVEL; Value: 102; Range: 98-107; Units: MEQ/L; Status: F Test: CARBON DIOXIDE LEVEL; Value: 25; Range: 21-32; Units: MEQ/L; Status: F Test: ANION GAP; Value: 11; Range: 8-16; Units: MEQ/L; Status: F Test: CALCIUM LEVEL; Value: 8.1; Range: 8.5-10.1; Abnormal: Below low normal; Units: MG/DL; Status: F Lab Order: Magnesium Level; SPEC'M 05/21/16 00:30 Test: MAGNESIUM LEVEL; Value: 2.0; Range: 1.4-2.0; Units: MG/DL; Status: F Lab Order: CELL COUNT/DIFF CSF; SPEC'M 05/20/16 23:20 Test: CSF TUBE# CELL CNT; Value: TUBE 1; Status: F Test: COLOR, CSF; Value: COLORLESS; Range: COLORLESS; Status: F Test: APPEARANCE, CSF; Value: CLEAR; Range: CLEAR; Status: F Test: WBC CSF AUTO; Value: 32; Range: 0-10; Abnormal: Above high normal; Units: /mm3; Status: F Test: RBC CSF AUTO; Value: 2878; Range: 0-0; Abnormal: Above high normal; Units: /mm3; Status: F Test: NEUTROPHILS, CSF AUTO %; Value: 43.0; Range: 0-0; Abnormal: Above high normal; Units: %; Status: F Test: LYMPHOCYTES, CSF AUTO %; Value: 50.0; Range: 0-0; Abnormal: Above high normal; Units: %; Status: F Test: MONOCYTES, CSF AUTO %; Value: 7.0; Range: 0-0; Abnormal: Above high normal; Units: %; Status: F Test: EOSINOPHILS, CSF AUTO %; Value: 0.0; Range: 0-0; Units: %; Status: F Test Note: ; only tube Lab Order: CSF GLUCOSE; SPEC'M 05/20/16 23:20 Test: GLUCOSE CSF; Value: 51; Range: 40-75; Units: MG/DL; Status: F Test: CSF TUBE# GLU; Value: TUBE 1; Status: F Lab Order: CSF T PROTEIN; SPEC'M 05/20/16 23:20 Test: TOTAL PROTEIN,CSF; Value: 33.8; Range: 15-45; Units: MG/DL; Status: F Test: CSF TUBE# TP; Value: TUBE 1; Status: F Lab Order: CSF CULTURE AND GRAM STAIN; SPEC'M 05/20/16 23:20 Test: GRAM STAIN; Value: GRAM STAIN RESULT; Status: F Test: GRAM STAIN; Value: NO ORGANISMS SEEN; Status: F Test: GRAM STAIN; Value: NO CELLS SEEN; Status: F Radiology Order: -MRA-Brain without contrast Test: -MRA-Brain without contrast REASON FOR EXAMINATION: ? papilledema; ; MRA of the brain; Clinical history: blurred vision.; Technique: [id number] MRA images of the brain were obtained without administration of contrast. 3; -D MIP images were also obtained.; Findings: The vascular structures extending from the distal carotid and vertebrobasilar arterial syst; ems, through the little traverse of [place], demonstrate normal caliber and contour. There is no evidence of an; eurysm, stenosis, or thrombosis.; Impression: Unremarkable MRA examination of the brain.; ; Radiology Order: -MRI-Brain without Test: -MRI-Brain without REASON FOR EXAMINATION: ? papilledema; ; MRI of the brain without contrast; Clinical history: blurred vision.; Comparison: none.; Technique: Multiecho multiplanar MRI images of the brain were obtained without administration of cont; rast. Diffusion weighted images with ADC mapping was also obtained.; Findings:; The ventricles and sulci are symmetric bilaterally. The brain parenchyma demonstrates uniform and nor; mal signal on all sequences. There is no midline shift, mass effect, or extra-axial fluid collection.; The midline intracranial structures do not demonstrate any gross abnormalities. The cervical cranial; junction is intact. The orbits are unremarkable. The visualized paranasal sinuses and mastoid air ce; lls are clear. The osseous structures and superficial soft tissues are unremarkable. The vascular str; uctures demonstrate appropriate flow voids.; Impression: Normal MRI of the Brain.; ; Radiology Order: MRA BRAIN W/O CONTRAST Test: MRA BRAIN W/O CONTRAST REASON FOR EXAMINATION: MRV; ; MRV of the brain; Clinical history: papilledema, blurred vision.; Technique: time of flight MRV images of the brain were obtained without administration of contrast.; No comparison is available.; Findings: The venous structures demonstrate normal caliber and contour. No intraluminal thrombus is a; ppreciated. There is no discrete evidence of clinically significant stenosis or obstruction.; Impression: Unremarkable MRV examination of the brain.; ; Outcome: 05/21 02:33 Discharge ordered by Provider. mm11 02:57 Discharge Assessment: Patient awake, alert and oriented x 3. No cognitive and/or mgs functional deficits noted. Patient verbalized understanding of disposition instructions. patient administered narcotics - no. The following High Risk Discharge criteria are identified: None. Discharged to home ambulatory, with parent. Condition: stable. Discharge instructions given to patient, parents Instructed on discharge instructions, follow up and referral plans. medication usage, Demonstrated understanding of instructions, medications, Pt was receptive of discharge instructions/ teaching. Prescriptions given X 1. MRI Study completed. Property sent home with patient. 02:58 Patient left the ED. mgs Signatures: Dispatcher MedHost EDMS Osman Mahajan MD MD pc Newman, Jill New RN RN Conchita Villarreal RN RN dls La Nena Benedict, Forensic Document Examiner Unit ml3 Oj Moreira Matthew, DO DO mm11 Jayashree Crawford, RUBBER PRESS OPERATOR RUBBER PRESS OPERATOR Nellie Campos gr2 Li Copeland RN RN [email or web address] Karan Jay,RN RN mgs Fe Allen DO DO jo4 Corrections: (The following items were deleted from the chart) 05/20 18:17 17:10 General: Appears in no apparent distress, rashawn morocho MTDD
[2016-05-21] MEDS ORDERED: VITA-197 PO (23:57)
[2016-05-21] MEDS ORDERED: VITAMIN B12 GUMMY PO (23:57)
[2016-05-21] MEDS ORDERED: MULT1CHW26 PO (23:57)
[2016-05-21] MEDS ORDERED: DULO1CAP2 PO (23:57)
[2016-05-21] MEDS ORDERED: ACET25TA PO (23:57)
[2016-05-21] MEDS ORDERED: EXCETAB80 PO (23:57)
--- NOTE | 2016-05-23 03:59 | EDDOCDS ---
Physician Documentation [facility] Name: Irina Vincent Age: 20 yrs Sex: Female : 1995 Arrival Date: 05/20/2016 Time: 16:42 Bed 4 Private MD: Sawyer Haines FPA Disposition: 05/20 19:24 I have independently interviewed and examined the patient, and I agree with the pc investigation, diagnosis and treatment plan as documented by the Resident. Disposition: 05/21/16 02:33 Discharged to Home/Self Care. Impression: Benign intracranial hypertension. - Condition is Stable. - Discharge Instructions: Idiopathic Intracranial Hypertension. - Prescriptions for acetazolamide 250 mg Oral Tablet - take 2 tablet by ORAL route 2 times per day; 60 tablet. - Medication Reconciliation, Local Pharmacy Hours form. - Follow up: Enriqueta Ramirez; When: Call to arrange an appointment; Reason: Continuance of care. Follow up: Private Physician; When: Call to arrange an appointment; Reason: Continuance of care. - Problem is an acute exacerbation. - Symptoms have improved. Historical: - Allergies: no known allergies; - Home Meds: 1. Excedrin Migraine 250-250-65 mg Oral tab as needed - PMHx: none; - PSHx: none; - Social history: Smoking status: Patient/guardian denies using No barriers to communication noted, The patient speaks fluent Yemeni. - Family history: Not pertinent. - : The pt / caregiver states he / she is not on anticoagulants. Home medication list is obtained from the patient. - Exposure Risk Screening:: None identified. CUT IN WORKER: 16:49 LMP 04/25/2016 dls Vital Signs: 16:45 BP 145 / 80; Pulse 97; Resp 18 S; Temp 96.1(O); Pulse Ox 97% on R/A; Weight 86.18 kg / gr2 189.99 lbs (R); Height 5 ft. 4 in. (162.56 cm) (R); Pain 3/10; 20:18 BP 144 / 75; Pulse 81; Resp 18; Pulse Ox 98% on R/A; mgs 22:40 BP 138 / 76 (auto/); mgs 22:42 Pulse 92 MON; Pulse Ox 98% ; mgs 22:54 BP 136 / 75 (auto/); mgs 22:54 Pulse 84 MON; Pulse Ox 98% ; mgs 23:09 BP 137 / 73 (auto/); mgs 23:09 Pulse 94 MON; Pulse Ox 96% ; mgs 23:24 BP 118 / 62 (auto/); mgs 23:24 Pulse 84 MON; Pulse Ox 96% ; mgs 23:39 BP 123 / 66 (auto/); mgs 23:39 Pulse 78 MON; Pulse Ox 97% ; mgs 23:54 BP 130 / 69 (auto/); mgs 23:54 Pulse 78 MON; Pulse Ox 96% ; mgs 05/21 00:09 BP 122 / 65 (auto/); mgs 00:09 Pulse 78 MON; Pulse Ox 97% ; mgs 00:24 Pulse 76 MON; Pulse Ox 98% ; mgs 00:24 BP 121 / 67 (auto/); mgs 00:39 BP 125 / 64 (auto/); mgs 00:39 Pulse 80 MON; Pulse Ox 97% ; mgs 00:54 BP 137 / 66 (auto/); mgs 00:56 Pulse 82 MON; Pulse Ox 98% ; mgs 01:09 BP 131 / 67 (auto/); mgs 01:09 Pulse 72 MON; Pulse Ox 97% ; mgs 01:24 BP 128 / 67 (auto/); mgs 01:24 Pulse 76 MON; Pulse Ox 96% ; mgs 01:39 BP 126 / 70 (auto/); mgs 01:39 Pulse 94 MON; Pulse Ox 96% ; mgs 01:54 BP 128 / 68 (auto/); mgs 01:54 Pulse 92 MON; Pulse Ox 96% ; mgs 02:36 BP 121 / 62; Pulse 87; Resp 18; Temp 97.8(TE); Pulse Ox 96% on R/A; Pain 0/10; annie 05/20 16:45 Body Mass Index 32.61 (86.18 kg, 162.56 cm) gr2 MDM: 05/20 18:11 MRI Screening Tool - Place on chart, inform RN ordered. jo4 18:11 -MRA-Brain without contrast Ordered. EDMS 18:12 -MRI-Brain without Ordered. EDMS 18:14 Misc Marketing Intelligence Analyst Order ordered. jo4 18:16 MRI Screening Tool - Place on chart, inform RN complete. mk4 18:18 Misc Marketing Intelligence Analyst Order complete. jlf 18:19 MRA BRAIN W/O CONTRAST Ordered. EDMS 18:36 Financial registration complete. zo 20:09 [facility] [place] Agreement was scanned into [employer] and attached to record. zo 22:06 UCG by Nursing ordered. mm11 23:28 BMP Ordered. EDMS 23:28 Magnesium Level Ordered. EDMS 23:35 acetaZOLAMIDE 500 mg IV at calculated rate once ordered. mm11 23:37 Written Provider Order was scanned into [employer] and attached to record. ml3 23:41 Other: PROGRESS NOTE was scanned into [employer] and attached to record. ml3 23:42 IV Saline Lock ordered. mgs 23:42 d5-1/2 NS 500 ml blolus once 500 ml IV at bolus once ordered. mgs 23:42 d5-1/2 NS 500 ml at 150 ml/hr 500 ml IV at 150 mL/hr once ordered. mgs 05/21 00:01 C-PEPTIDE Ordered. EDMS 00:01 CELL COUNT/DIFF CSF Ordered. EDMS 00:01 CSF GLUCOSE Ordered. EDMS 00:01 CSF T PROTEIN Ordered. EDMS 00:01 CSF CULTURE AND GRAM STAIN Ordered. EDMS 00:08 Written Provider Order was scanned into [employer] and attached to record. ml3 00:20 INSULIN LEVEL Ordered. EDMS 10:53 T-Sheet-- Draft Copy was scanned into [employer] and attached to record. gb 10:53 Radiology Report was scanned into [employer] and attached to record. gb 10:53 [place] Protocol was scanned into [employer] and attached to record. gb 10:54 Consents was scanned into [employer] and attached to record. gb Point of Care Testing: Urine : 05/20 22:23 hCG Reading: Negative; mgs 22:23 Exp: 01/2018; Lot #: [id number]; mgs Ranges: Administered Medications: 05/21 00:32 Drug: acetaZOLAMIDE 500 mg Route: IV; Rate: calculated rate; Site: right antecubital; mgs 00:32 Drug: d5-1/2 NS 500 ml blolus once 500 ml Route: IV; Rate: bolus; Site: right mgs antecubital; 00:52 Drug: d5-1/2 NS 500 ml at 150 ml/hr 500 ml Route: IV; Rate: 150 mL/hr; Site: right mgs antecubital; Signatures: Dispatcher [employer] Osman Ladd MD MD pc Scott, Debra RN RN dls Abbie Cutler, Price Reg gb Marichuy EstefaniBethanyMaggi, Lpn Private Duty Unit ml3 Oj Moreira Matthew, DO DO mm11 Li Copeland RN RN mk4 Jeison Wright, SOIL SCIENTIST SOIL SCIENTIST jlf Karan Jay,ELGIN RN s Fe Allen, DO DO jo4 The chart was reviewed and I authenticate all verbal orders and agree with the evaluation and treatment provided.Attachments: 05/20 20:09 [facility] Payment Agreement zo 23:37 Written Provider Order ml3 05/21 00:08 Written Provider Order ml3 10:53 T-Sheet-- Draft Copy gb Chart Complete MTDD
--- NOTE | 2016-05-23 03:59 | EDDOCDS ---
Physician Documentation [facility] Name: Irina Vincent Age: 20 yrs Sex: Female : 1995 Arrival Date: 05/20/2016 Time: 16:42 Bed 4 Private MD: Sawyer Haines FPA Disposition: 05/20 19:24 I have independently interviewed and examined the patient, and I agree with the pc investigation, diagnosis and treatment plan as documented by the Resident. Disposition: 05/21/16 02:33 Discharged to Home/Self Care. Impression: Benign intracranial hypertension. - Condition is Stable. - Discharge Instructions: Idiopathic Intracranial Hypertension. - Prescriptions for acetazolamide 250 mg Oral Tablet - take 2 tablet by ORAL route 2 times per day; 60 tablet. - Medication Reconciliation, Local Pharmacy Hours form. - Follow up: Enriqueta Ramirez; When: Call to arrange an appointment; Reason: Continuance of care. Follow up: Private Physician; When: Call to arrange an appointment; Reason: Continuance of care. - Problem is an acute exacerbation. - Symptoms have improved. Historical: - Allergies: no known allergies; - Home Meds: 1. Excedrin Migraine 250-250-65 mg Oral tab as needed - PMHx: none; - PSHx: none; - Social history: Smoking status: Patient/guardian denies using No barriers to communication noted, The patient speaks fluent [place]. - Family history: Not pertinent. - : The pt / caregiver states he / she is not on anticoagulants. Home medication list is obtained from the patient. - Exposure Risk Screening:: None identified. READING ASSISTANT: 16:49 LMP 04/25/2016 dls Vital Signs: 16:45 BP 145 / 80; Pulse 97; Resp 18 S; Temp 96.1(O); Pulse Ox 97% on R/A; Weight 86.18 kg / gr2 189.99 lbs (R); Height 5 ft. 4 in. (162.56 cm) (R); Pain 3/10; 20:18 BP 144 / 75; Pulse 81; Resp 18; Pulse Ox 98% on R/A; mgs 22:40 BP 138 / 76 (auto/); mgs 22:42 Pulse 92 MON; Pulse Ox 98% ; mgs 22:54 BP 136 / 75 (auto/); mgs 22:54 Pulse 84 MON; Pulse Ox 98% ; mgs 23:09 BP 137 / 73 (auto/); mgs 23:09 Pulse 94 MON; Pulse Ox 96% ; mgs 23:24 BP 118 / 62 (auto/); mgs 23:24 Pulse 84 MON; Pulse Ox 96% ; mgs 23:39 BP 123 / 66 (auto/); mgs 23:39 Pulse 78 MON; Pulse Ox 97% ; mgs 23:54 BP 130 / 69 (auto/); mgs 23:54 Pulse 78 MON; Pulse Ox 96% ; mgs 05/21 00:09 BP 122 / 65 (auto/); mgs 00:09 Pulse 78 MON; Pulse Ox 97% ; mgs 00:24 Pulse 76 MON; Pulse Ox 98% ; mgs 00:24 BP 121 / 67 (auto/); mgs 00:39 BP 125 / 64 (auto/); mgs 00:39 Pulse 80 MON; Pulse Ox 97% ; mgs 00:54 BP 137 / 66 (auto/); mgs 00:56 Pulse 82 MON; Pulse Ox 98% ; mgs 01:09 BP 131 / 67 (auto/); mgs 01:09 Pulse 72 MON; Pulse Ox 97% ; mgs 01:24 BP 128 / 67 (auto/); mgs 01:24 Pulse 76 MON; Pulse Ox 96% ; mgs 01:39 BP 126 / 70 (auto/); mgs 01:39 Pulse 94 MON; Pulse Ox 96% ; mgs 01:54 BP 128 / 68 (auto/); mgs 01:54 Pulse 92 MON; Pulse Ox 96% ; mgs 02:36 BP 121 / 62; Pulse 87; Resp 18; Temp 97.8(TE); Pulse Ox 96% on R/A; Pain 0/10; annie 05/20 16:45 Body Mass Index 32.61 (86.18 kg, 162.56 cm) gr2 MDM: 05/20 18:11 MRI Screening Tool - Place on chart, inform RN ordered. jo4 18:11 -MRA-Brain without contrast Ordered. EDMS 18:12 -MRI-Brain without Ordered. EDMS 18:14 Misc Mold Yard Worker Order ordered. jo4 18:16 MRI Screening Tool - Place on chart, inform RN complete. mk4 18:18 Misc Mold Yard Worker Order complete. jlf 18:19 MRA BRAIN W/O CONTRAST Ordered. EDMS 18:36 Financial registration complete. zo 20:09 [facility] [place] was scanned into [employer] and attached to record. zo 22:06 UCG by Nursing ordered. mm11 23:28 BMP Ordered. EDMS 23:28 Magnesium Level Ordered. EDMS 23:35 acetaZOLAMIDE 500 mg IV at calculated rate once ordered. mm11 23:37 Written Provider Order was scanned into [employer] and attached to record. ml3 23:41 Other: PROGRESS NOTE was scanned into [employer] and attached to record. ml3 23:42 IV Saline Lock ordered. mgs 23:42 d5-1/2 NS 500 ml blolus once 500 ml IV at bolus once ordered. mgs 23:42 d5-1/2 NS 500 ml at 150 ml/hr 500 ml IV at 150 mL/hr once ordered. mgs 05/21 00:01 C-PEPTIDE Ordered. EDMS 00:01 CELL COUNT/DIFF CSF Ordered. EDMS 00:01 CSF GLUCOSE Ordered. EDMS 00:01 CSF T PROTEIN Ordered. EDMS 00:01 CSF CULTURE AND GRAM STAIN Ordered. EDMS 00:08 Written Provider Order was scanned into [employer] and attached to record. ml3 00:20 INSULIN LEVEL Ordered. EDMS 10:53 T-Sheet-- Draft Copy was scanned into [employer] and attached to record. gb 10:53 Radiology Report was scanned into [employer] and attached to record. gb 10:53 [place] Protocol was scanned into [employer] and attached to record. gb 10:54 Consents was scanned into [employer] and attached to record. gb Point of Care Testing: Urine : 05/20 22:23 hCG Reading: Negative; mgs 22:23 Exp: 01/2018; Lot #: [id number]; mgs Ranges: Administered Medications: 05/21 00:32 Drug: acetaZOLAMIDE 500 mg Route: IV; Rate: calculated rate; Site: right antecubital; mgs 00:32 Drug: d5-1/2 NS 500 ml blolus once 500 ml Route: IV; Rate: bolus; Site: right mgs antecubital; 00:52 Drug: d5-1/2 NS 500 ml at 150 ml/hr 500 ml Route: IV; Rate: 150 mL/hr; Site: right mgs antecubital; Signatures: Dispatcher [employer] Osman Ladd MD MD pc Scott, Debra RN RN dls Abbie Cutler, Price Reg gb Marichuy EstefaniBethanyMaggi, Radio Station Audio Engineer Unit ml3 Oj Moreira Matthew, DO DO mm11 Li Copeland RN RN mk4 Jeison Wright, CANDLE POURER CANDLE POURER jlf Karan Jay,ELGIN RN s Fe Allen, DO DO jo4 The chart was reviewed and I authenticate all verbal orders and agree with the evaluation and treatment provided.Attachments: 05/20 20:09 [facility] Payment Agreement zo 23:37 Written Provider Order ml3 05/21 00:08 Written Provider Order ml3 10:53 T-Sheet-- Draft Copy gb Chart Complete MTDD
--- NOTE | 2016-05-23 03:59 | EDDOCDS ---
Nurse's Notes [facility] Name: Irina Vincent Age: 20 yrs Sex: Female : 1995 Arrival Date: 05/20/2016 Time: 16:42 Bed 4 Private MD: Sawyer Haines FPA Diagnosis: Benign intracranial hypertension Presentation: 05/20 16:47 Presenting complaint: Patient states: Pt sent from Dr Lazo office pt has papillary dls edema with blurred vision. Sent to ED for further testing. Adult Sepsis Screening: The patient does not have new or worsening altered mentation. Patient's respiratory rate is less than 22. Systolic blood pressure is greater than 100. Patient has a qSOFA score of 0- Negative Sepsis Screen. Suicide/Homicide risk assessment- the patient denies having any suicidal and/or homicidal ideations and does not present with any other emotional, behavioral or mental health complaints. Status: Patient is not a personal service representative or dependent. Transition of care: patient was not received from another setting of care. 16:47 Acuity: DANIELLE Level 3 dls 16:47 Method Of Arrival: Walkin/Carried/Asstd dls Triage Assessment: 16:49 General: Appears in no apparent distress, well developed, well nourished, well groomed, dls Behavior is cooperative. Pain: Denies pain. HIV screening NA for this visit Offered previously. 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 Excedrin Migraine 250-250-65 mg Oral tab as needed - PMHx: none; - PSHx: none; - Social history: Smoking status: Patient/guardian denies using No barriers to communication noted, The patient speaks fluent Pashto. - Family history: Not pertinent. - : The pt / caregiver states he / she is not on anticoagulants. Home medication list is obtained from the patient. - Exposure Risk Screening:: None identified. Screenin:10 Screening information is obtained from the patient. Fall risk: No risks identified. mk4 Assistance ADL's: requires no assistance with activities of daily living. Abuse/DV Screen: The patient / caregiver reports he/she is: not in a situation that causes fear, pain or injury. Nutritional screening: No deficits noted. Advance Directives: Currently, there is no health care proxy. There is no active DNR order. There is no living will. There is no Power of After School Counselor. Advance directive information has not previously been placed in an [facility] medical record. home support is adequate. Assessment: 17:10 General: Appears in no apparent distress. mk4 18:17 Neurological: Level of Consciousness is awake, alert, Oriented to person, place, time. mk4 Respiratory: Airway is patent Respiratory effort is even, unlabored, Respiratory pattern is regular. 18:19 Pain: Location: headache. mk4 18:52 General: Appears in no apparent distress, dr ramirez in examining pt. Neurological: mk4 Level of Consciousness is awake, alert, Oriented to person, place, time. Respiratory: Airway is patent Respiratory effort is even, unlabored, Respiratory pattern is regular. 18:54 General: awaiting MRI. mk4 20:16 Adult Sepsis Screening: The patient does not have new or worsening altered mentation. mgs Patient's respiratory rate is less than 22. Systolic blood pressure is greater than 100. Patient has a qSOFA score of 0- Negative Sepsis Screen. General: Appears in no apparent distress, Behavior is cooperative. Pain: Denies pain. Neurological: Level of Consciousness is awake, alert, Oriented to person, place, time, Sub Assembly Team Worker are equal bilaterally Moves all extremities. Speech is normal, Facial symmetry appears normal, Facial symmetry: tongue is midline, Pupils are PERRLA. Cardiovascular: Capillary refill < 3 seconds. Respiratory: Airway is patent Respiratory effort is even, unlabored, Respiratory pattern is regular, symmetrical. Derm: Skin is pink, warm & dry. 21:29 General: Appears in no apparent distress, Behavior is appropriate for age, cooperative. mgs Neurological: Level of Consciousness is awake, alert, Oriented to person, place, time. Cardiovascular: Capillary refill < 3 seconds. Respiratory: Airway is patent Respiratory effort is even, unlabored, Respiratory pattern is regular, symmetrical. Derm: Skin is pink, warm & dry. 22:24 General: Appears in no apparent distress, Behavior is appropriate for age, cooperative. mgs Neurological: Level of Consciousness is awake, alert. Cardiovascular: Capillary refill < 3 seconds. Respiratory: Airway is patent Respiratory effort is even, unlabored, Respiratory pattern is regular, symmetrical. Derm: Skin is pink, warm & dry. 05/21 00:14 Adult Sepsis Screening: The patient does not have new or worsening altered mentation. mgs Patient's respiratory rate is less than 22. Systolic blood pressure is greater than 100. Patient has a qSOFA score of 0- Negative Sepsis Screen. General: Appears in no apparent distress, Behavior is appropriate for age, cooperative. Pain: Denies pain. Neurological: Level of Consciousness is awake, alert, Oriented to person, place, time. Cardiovascular: Capillary refill < 3 seconds. Respiratory: Airway is patent Respiratory effort is even, unlabored, Respiratory pattern is regular, symmetrical. Derm: Skin is pink, warm & dry. 01:42 General: Appears in no apparent distress, Behavior is cooperative. Neurological: Level mgs of Consciousness is awake, alert, Oriented to person, place, time. Cardiovascular: Capillary refill < 3 seconds. Respiratory: Airway is patent Respiratory effort is even, unlabored, Respiratory pattern is regular, symmetrical. Derm: Skin is pink, warm & dry. 02:56 General: Appears in no apparent distress, Behavior is appropriate for age, cooperative. mgs Neurological: Level of Consciousness is awake, alert, Oriented to person, place, time. Cardiovascular: Capillary refill < 3 seconds. Respiratory: Airway is patent Respiratory effort is even, unlabored, Respiratory pattern is regular, symmetrical. Derm: Skin is pink, warm & dry. Vital Signs: 05/20 16:45 BP 145 / 80; Pulse 97; Resp 18 S; Temp 96.1(O); Pulse Ox 97% on R/A; Weight 86.18 kg gr2 (R); Height 5 ft. 4 in. (162.56 cm) (R); Pain 3/10; 20:18 BP 144 / 75; Pulse 81; Resp 18; Pulse Ox 98% on R/A; mgs 22:40 BP 138 / 76 (auto/); mgs 22:42 Pulse 92 MON; Pulse Ox 98% ; mgs 22:54 BP 136 / 75 (auto/); mgs 22:54 Pulse 84 MON; Pulse Ox 98% ; mgs 23:09 BP 137 / 73 (auto/); mgs 23:09 Pulse 94 MON; Pulse Ox 96% ; mgs 23:24 BP 118 / 62 (auto/); mgs 23:24 Pulse 84 MON; Pulse Ox 96% ; mgs 23:39 BP 123 / 66 (auto/); mgs 23:39 Pulse 78 MON; Pulse Ox 97% ; mgs 23:54 BP 130 / 69 (auto/); mgs 23:54 Pulse 78 MON; Pulse Ox 96% ; mgs 0131 00:09 BP 122 / 65 (auto/); mgs 00:09 Pulse 78 MON; Pulse Ox 97% ; mgs 00:24 Pulse 76 MON; Pulse Ox 98% ; mgs 00:24 BP 121 / 67 (auto/); mgs 00:39 BP 125 / 64 (auto/); mgs 00:39 Pulse 80 MON; Pulse Ox 97% ; mgs 00:54 BP 137 / 66 (auto/); mgs 00:56 Pulse 82 MON; Pulse Ox 98% ; mgs 01:09 BP 131 / 67 (auto/); mgs 01:09 Pulse 72 MON; Pulse Ox 97% ; mgs 01:24 BP 128 / 67 (auto/); mgs 01:24 Pulse 76 MON; Pulse Ox 96% ; mgs 01:39 BP 126 / 70 (auto/); mgs 01:39 Pulse 94 MON; Pulse Ox 96% ; mgs 01:54 BP 128 / 68 (auto/); mgs 01:54 Pulse 92 MON; Pulse Ox 96% ; mgs 02:36 BP 121 / 62; Pulse 87; Resp 18; Temp 97.8(TE); Pulse Ox 96% on R/A; Pain 0/10; annie 05/20 16:45 Body Mass Index 32.61 (86.18 kg, 162.56 cm) gr2 Vitals: 05/20 16:45 Log In Time: May 20, 2016 at 16:45. gr2 ED Course: 16:44 Patient visited by Nellie Snyder. gr2 16:44 Patient moved to Waiting gr2 16:45 Sawyer Haines is Private Physician. gr2 16:45 Patient visited by Nellie Snyder. gr2 16:46 Patient moved to Pre RCE gr2 16:49 Triage Initiated dls 16:51 Patient moved to 15 dls 16:58 [facility] jo4 16:58 Osman Mahajan MD is Attending Physician. jo4 17:10 The patient / caregiver is instructed regarding the plan of care and ED course. mk4 17:16 Patient visited by Li Copeland RN. mk4 17:45 Patient visited by Fe Allen DO. jo4 17:45 Fe Aleln [facility]. jo4 17:45 Patient visited by Fe Allen DO. jo4 18:16 Patient visited by Li Copeland RN. mk4 18:48 Patient visited by Osman Mahajan MD. pc 18:56 Karan Jay,ELGIN is Primary Nurse. mgs 19:06 Patient moved to MRI annie 19:36 Attending Physician role handed off by Osman Mahajan MD mm11 19:36 Karan Vazquez DO is Attending Physician. mm11 20:05 MRA BRAIN W/O CONTRAST Returned. EDMS 20:05 -MRA-Brain without contrast Returned. EDMS 20:09 OR-[facility] [place] [facility] Payment Agreement was scanned into [employer] and attached to record. zo 20:10 Patient name changed from Irina\S\\S\Melisa\S\ to Irina\S\ \S\[place]. EDMS 20:10 Patient visited by Jayashree Crawford PCA. annie 20:10 Patient moved to 15 annie 20:19 Patient visited by Karan Jay RN. mgs 20:49 Patient visited by Karan Vazquez DO. mm11 20:53 -MRI-Brain without Returned. EDMS 21:30 Patient visited by Karan aJy RN. mgs 22:24 Patient visited by Karan Jay RN. mgs 22:24 Patient moved to 4 apr 23:36 Patient visited by Karan Vazquez DO. mm11 23:37 Written Provider Order was scanned into Aternity and attached to record. ml3 23:41 Other: PROGRESS NOTE was scanned into Aternity and attached to record. ml3 05/21 00:01 C-PEPTIDE Sent. mgs 00:03 CSF CULTURE AND GRAM STAIN Sent. mgs 00:03 CSF T PROTEIN Sent. mgs 00:03 CSF GLUCOSE Sent. mgs 00:03 CELL COUNT/DIFF CSF Sent. mgs 00:08 Written Provider Order was scanned into Aternity and attached to record. ml3 00:15 Patient visited by Karan Jay RN. mgs 00:32 INSULIN LEVEL Sent. mgs 00:33 Patient visited by Karan Jay RN. mgs 00:33 Inserted saline lock: 20 gauge in right antecubital area and blood collected. The mgs patient tolerated the procedure well. 01:33 Patient visited by Jayashree Crawford PCA. annie 01:42 Patient visited by Karan Jay RN. mgs 02:33 Patient visited by Karan Vazquez DO. mm11 02:33 Enriqueta Ramirez is Referral Physician. mm11 02:37 Patient visited by Jayashree Crawford PCA. annie 02:56 Discontinued IV lock intact, bleeding controlled, pressure dressing applied, No mgs redness/swelling at site. No procedures done that require assistance. 10:53 T-Sheet-- Draft Copy was scanned into Aternity and attached to record. gb 10:53 Radiology Report was scanned into Aternity and attached to record. gb 10:53 [place] Protocol was scanned into Aternity and attached to record. gb 10:54 Consents was scanned into Aternity and attached to record. gb Administered Medications: 00:32 Drug: acetaZOLAMIDE 500 mg Route: IV; Rate: calculated rate; Site: right antecubital; mgs 00:32 Drug: d5-1/2 NS 500 ml blolus once 500 ml Route: IV; Rate: bolus; Site: right mgs antecubital; 00:52 Drug: d5-1/2 NS 500 ml at 150 ml/hr 500 ml Route: IV; Rate: 150 mL/hr; Site: right mgs antecubital; Attachments: 10:53 [place] Protocol gb 10:54 Consents gb Point of Care Testing: Urine : 05/20 22:23 hCG Reading: Negative; mgs 22:23 Exp: 01/2018; Lot #: [id number]; mgs Ranges: Order Results: Lab Order: BMP; SPEC'M 05/21/16 00:30 Test: GLUCOSE, FASTING; Value: 186; Range: 70-105; Abnormal: Above high normal; Units: MG/DL; Status: F Test: BLOOD UREA NITROGEN; Value: 11; Range: 7-18; Units: MG/DL; Status: F Test: CREATININE FOR GFR; Value: 0.70; Range: 0.55-1.02; Units: MG/DL; Status: F Test: SODIUM LEVEL; Value: 138; Range: 136-145; Units: MEQ/L; Status: F Test: POTASSIUM SERUM; Value: 3.4; Range: 3.5-5.1; Abnormal: Below low normal; Units: MEQ/L; Status: F Test: CHLORIDE LEVEL; Value: 102; Range: 98-107; Units: MEQ/L; Status: F Test: CARBON DIOXIDE LEVEL; Value: 25; Range: 21-32; Units: MEQ/L; Status: F Test: ANION GAP; Value: 11; Range: 8-16; Units: MEQ/L; Status: F Test: CALCIUM LEVEL; Value: 8.1; Range: 8.5-10.1; Abnormal: Below low normal; Units: MG/DL; Status: F Lab Order: Magnesium Level; SPEC'M 05/21/16 00:30 Test: MAGNESIUM LEVEL; Value: 2.0; Range: 1.4-2.0; Units: MG/DL; Status: F Lab Order: C-PEPTIDE; SPEC'M 05/21/16 00:30 Test: C-PEPTIDE; Value: 11.3; Range: 1.1-4.4; Abnormal: Above high normal; Units: ng/mL; Status: F Test Note: ; C-Peptide reference interval is for fasting patients. Performed at: RN - [facility] [address] [id number] Dough Mixer: Tammy Petty MD, Phone: [phone] Lab Order: CELL COUNT/DIFF CSF; SPEC'M 05/20/16 23:20 Test: CSF TUBE# CELL CNT; Value: TUBE 1; Status: F Test: COLOR, CSF; Value: COLORLESS; Range: COLORLESS; Status: F Test: APPEARANCE, CSF; Value: CLEAR; Range: CLEAR; Status: F Test: WBC CSF AUTO; Value: 32; Range: 0-10; Abnormal: Above high normal; Units: /mm3; Status: F Test: RBC CSF AUTO; Value: 2878; Range: 0-0; Abnormal: Above high normal; Units: /mm3; Status: F Test: NEUTROPHILS, CSF AUTO %; Value: 43.0; Range: 0-0; Abnormal: Above high normal; Units: %; Status: F Test: LYMPHOCYTES, CSF AUTO %; Value: 50.0; Range: 0-0; Abnormal: Above high normal; Units: %; Status: F Test: MONOCYTES, CSF AUTO %; Value: 7.0; Range: 0-0; Abnormal: Above high normal; Units: %; Status: F Test: EOSINOPHILS, CSF AUTO %; Value: 0.0; Range: 0-0; Units: %; Status: F Test Note: ; only tube Lab Order: CSF GLUCOSE; SPEC'05/20/16 23:20 Test: GLUCOSE CSF; Value: 51; Range: 40-75; Units: MG/DL; Status: F Test: CSF TUBE# GLU; Value: TUBE 1; Status: F Lab Order: CSF T PROTEIN; SPEC05/20/16 23:20 Test: TOTAL PROTEIN,CSF; Value: 33.8; Range: 15-45; Units: MG/DL; Status: F Test: CSF TUBE# TP; Value: TUBE 1; Status: F Lab Order: CSF CULTURE AND GRAM STAIN; SPEC05/20/16 23:20 Test: GRAM STAIN; Value: GRAM STAIN RESULT; Status: F Test: GRAM STAIN; Value: NO ORGANISMS SEEN; Status: F Test: GRAM STAIN; Value: NO CELLS SEEN; Status: F Lab Order: INSULIN LEVEL; SPEC'05/21/16 00:30 Test: INSULIN LEVEL; Value: 132.0; Range: 2.6-24.9; Abnormal: Above high normal; Units: uIU/mL; Status: F Test Note: ; Performed at: RN - [facility] [address] [id number] Dough Mixer: Tammy Petty MD, Phone: [phone] Radiology Order: -MRA-Brain without contrast Test: -MRA-Brain without contrast REASON FOR EXAMINATION: ? papilledema; ; MRA of the brain; Clinical history: blurred vision.; Technique: Aria-gh-afmeeg MRA images of the brain were obtained without administration of contrast. 3; -D MIP images were also obtained.; Findings: The vascular structures extending from the distal carotid and vertebrobasilar arterial syst; ems, through the [place], demonstrate normal caliber and contour. There is no evidence of an; eurysm, stenosis, or thrombosis.; Impression: Unremarkable MRA examination of the brain.; ; Radiology Order: -MRI-Brain without Test: -MRI-Brain without REASON FOR EXAMINATION: ? papilledema; ; MRI of the brain without contrast; Clinical history: blurred vision.; Comparison: none.; Technique: Multiecho multiplanar MRI images of the brain were obtained without administration of cont; rast. Diffusion weighted images with ADC mapping was also obtained.; Findings:; The ventricles and sulci are symmetric bilaterally. The brain parenchyma demonstrates uniform and nor; mal signal on all sequences. There is no midline shift, mass effect, or extra-axial fluid collection.; The midline intracranial structures do not demonstrate any gross abnormalities. The cervical cranial; junction is intact. The orbits are unremarkable. The visualized paranasal sinuses and mastoid air ce; lls are clear. The osseous structures and superficial soft tissues are unremarkable. The vascular str; uctures demonstrate appropriate flow voids.; Impression: Normal MRI of the Brain.; ; Radiology Order: MRA BRAIN W/O CONTRAST Test: MRA BRAIN W/O CONTRAST REASON FOR EXAMINATION: MRV; ; MRV of the brain; Clinical history: papilledema, blurred vision.; Technique: time of flight MRV images of the brain were obtained without administration of contrast.; No comparison is available.; Findings: The venous structures demonstrate normal caliber and contour. No intraluminal thrombus is a; ppreciated. There is no discrete evidence of clinically significant stenosis or obstruction.; Impression: Unremarkable MRV examination of the brain.; ; Outcome: 05/21 02:33 Discharge ordered by Provider. mm11 02:57 Discharge Assessment: Patient awake, alert and oriented x 3. No cognitive and/or mgs functional deficits noted. Patient verbalized understanding of disposition instructions. patient administered narcotics - no. The following High Risk Discharge criteria are identified: None. Discharged to home ambulatory, with parent. Condition: stable. Discharge instructions given to patient, parents Instructed on discharge instructions, follow up and referral plans. medication usage, Demonstrated understanding of instructions, medications, Pt was receptive of discharge instructions/ teaching. Prescriptions given X 1. MRI Study completed. Property sent home with patient. 02:58 Patient left the ED. mgs Signatures: Dispatcher [employer] EDOsman Laboy MD MD pc Newman, Jill New RN RN Conchita Villarreal RN RN dls Abbie Cutler, Reg Reg gb La Nena Benedict, Felt Hat Pouncing Operator Hand Unit ml3 Oj Moreira Matthew, DO DO mm11 Jayashree Crafword, GRAIN OPERATIONS MANAGER GRAIN OPERATIONS MANAGER annie Nellie Snyder gr2 Li Copeland RN RN [email or web address] Karan Jay RN RN mgs Fe Allen DO DO jo4 Corrections: (The following items were deleted from the chart) 05/20 18:17 17:10 General: Appears in no apparent distress, rashawn morocho Chart Complete MTDD
== END 2016-05-21 02:58 | disposition home or self-care (01) ==
LOC: M ED 16:42
DX: G93.2 Benign intracranial hypertension (principal)
CPT/HCPCS: 36415; 62270; 70544; 70551; 80048; 81025; 82945; 83525; 83735; 84157; 84681; 87015; 87070; 87205; 89051; 96374; 99284; J1120

== ENCOUNTER 2016-05-21 15:58 | Emergency (ER) | payer OTHER ==
[2016-05-21] MEDS ORDERED: MORPHINE 2 MG/ML 1ML SYRINGE As Ordered ONE (23:13)
[2016-05-21] MEDS ORDERED: ONDANSETRON 4MG/2ML VIAL (J2405) As Ordered ONE (23:13)
[2016-05-21] MEDS ORDERED: VITAMIN B12 GUMMY PO (23:57)
[2016-05-21] MEDS ORDERED: MULT1CHW26 PO (23:57)
[2016-05-21] MEDS ORDERED: EXCETAB80 PO (23:57)
[2016-05-21] MEDS ORDERED: ACET25TA PO (23:57)
[2016-05-21] MEDS ORDERED: DULO1CAP2 PO (23:57)
[2016-05-21] MEDS ORDERED: VITA-197 PO (23:57)
[2016-05-22] MEDS ORDERED: NORCO, ANEXSIA 5/325MG TABLET (HYDROcodone/ACETAMINOPHEN) As Ordered ONE (02:22)
== END 2016-05-21 17:57 | disposition left against medical advice (07) ==
LOC: M ED 15:58
DX: G43.909 Migraine, unspecified, not intractable, without status migrainosus (principal); Z79.899 Other long term (current) drug therapy; Z53.21 Procedure and treatment not carried out due to patient leaving prior to being seen by health care provider

== ENCOUNTER 2016-05-21 18:46 | Observation (INO) | payer OTHER ==
[~2016-05-21] VITALS: Ht 162.6 cm; Wt 84.0 kg
--- NOTE | 2016-05-21 20:10 | REPUSA ---
MRI of the thoracic spine without contrast Clinical statement: Pain. Technique: Multiecho multiplanar MRI images of the thoracic spine were obtained without administratio n of contrast. No comparison is available. Findings: The thoracic vertebral bodies are in satisfactory position and alignment. No fractures or d islocations are demonstrated. The bone marrow appears unremarkable. Intervertebral disc spaces are we ll maintained. There is no evidence of disc herniation or protrusion. The neural foramen are patent. The facet joints are intact. The surrounding soft tissues are within normal limits. Impression: Unremarkable MRI examination of the thoracic spine.
--- NOTE | 2016-05-21 20:20 | REPUSA ---
MRI cervical spine without contrast Clinical statement: Pain. Technique: Multiecho multiplanar MRI images of the cervical spine were obtained without administratio n of contrast. No comparison is available. Findings: The cervical vertebral bodies are in satisfactory position and alignment. No fractures or d islocations are demonstrated. Normal heterogeneous bone marrow signal is noted. No osseous tumors are seen. The visualized portions of the posterior fossa are unremarkable. The cervical cranial junction is intact. The intervertebral disc spaces and heights are well-maintained. The facet joints are inta ct without evidence of subluxation. The cervical spinal cord demonstrates normal signal and contour. The surrounding soft tissues are within normal limits. At the cervical vertebral levels, there is no evidence of disc herniation or protrusion. There is no central canal stenosis. The neural foramina are patent bilaterally. Impression: Unremarkable MRI examination of the cervical spine.
--- NOTE | 2016-05-21 20:50 | REPUSA ---
MRI of the lumbar spine without contrast Clinical statement: Pain. Technique: Multiecho multiplanar MRI images of the lumbar spine were obtained without administration of contrast. No comparison is available. Findings: The lumbar vertebral bodies are in satisfactory position and alignment. No fractures or dis locations are demonstrated. Normal heterogeneous bone marrow signal is noted. No osseous tumors are s een. The intervertebral disc heights are well maintained and demonstrate normal signal. The filum ter minale and conus medullaris appear unremarkable. The spinal cord demonstrates normal signal and conto ur. The surrounding soft tissues are within normal limits. At the lumbar vertebral levels, there is no evidence of disc herniation or protrusion. There is no ce ntral canal stenosis. The neural foramina are patent bilaterally. Impression: Unremarkable MRI examination of the lumbar spine.
[2016-05-21] MEDS ORDERED: METOCLOPRAMIDE 10 MG TAB As Ordered ONE (21:01)
[2016-05-21] MEDS ORDERED: LORazepam 1 MG TAB As Ordered ONE (21:01)
[2016-05-21] MEDS ORDERED: ACETAMINOPHEN 325 MG TAB As Ordered ONE (21:01)
--- NOTE | 2016-05-21 21:30 | REPUSA ---
CT of the head Clinical history: Headache. Comparison: MRI, 05/20/2016. Technique: Multiple axial CT images were obtained through the head without administration of contrast . Findings: The ventricles and sulci are symmetric bilaterally. There is no evidence of acute hemorrhag e or infarct. There is no midline shift, mass effect, or extra-axial fluid collection. The osseous st ructures are unremarkable. The visualized paranasal sinuses and mastoid air cells are clear. Impression: Negative study.
[2016-05-21] MEDS ORDERED: AcetaZOLAMIDE 250 MG TAB PO ONE (22:15)
[2016-05-21] MEDS ORDERED: ONDANSETRON 4 MG ORAL DISINTEGRATING TAB (S0181) As Ordered ONE (22:26)
[2016-05-21] MEDS ORDERED: EXCETAB80 PO (23:57)
[2016-05-21] MEDS ORDERED: VITAMIN B12 GUMMY PO (23:57)
[2016-05-21] MEDS ORDERED: DULO1CAP2 PO (23:57)
[2016-05-21] MEDS ORDERED: ACET25TA PO (23:57)
[2016-05-21] MEDS ORDERED: MULT1CHW26 PO (23:57)
[2016-05-21] MEDS ORDERED: VITA-197 PO (23:57)
[2016-05-22] VITALS (9 sets, daily range): BP systolic 114–157; BP diastolic 57–81
--- NOTE | 2016-05-22 02:58 | EDDOCDS ---
Nurse's Notes [facility] Name: Irina Vincent Age: 20 yrs Sex: Female : 1995 Arrival Date: 05/21/2016 Time: 18:46 Bed 14 Private MD: Enriqueta Ramirez J. Diagnosis: Headache Presentation: 05/21 19:08 Presenting complaint: Patient states: arrival from interventional radiology after mk4 spinal tap, immed upon arrival pt transferred back to radiology for MRI. This patient has no additional risk factors. Adult Sepsis Screening: The patient does not have new or worsening altered mentation. Patient's respiratory rate is less than 22. Systolic blood pressure is greater than 100. Patient has a qSOFA score of 0- Negative Sepsis Screen. Suicide/Homicide risk assessment- the patient denies having any suicidal and/or homicidal ideations and does not present with any other emotional, behavioral or mental health complaints. Status: Patient is not a radiology equipment servicer or dependent. Transition of care: patient was not received from another setting of care. 19:08 Acuity: DANIELLE Level 2 mk4 19:08 Method Of Arrival: Other 4 Triage Assessment: 19:11 General: Appears uncomfortable. HIV screening NA for this visit Offered previously. mk4 Neurological: Level of Consciousness is awake, alert, Oriented to person, place, time. 05/22 02:09 Headache History: This patient has a history of headaches and the character of this tm5 headache is like all previous headaches. Historical: - Allergies: no known allergies; - Home Meds: 1. diamox every 4 hours 2. Excedrin Migraine 250-250-65 mg Oral tab as needed 3. monocycline was told to stop taking - PMHx: Migraine Headaches; - PSHx: none; - Social history: Smoking status: Patient states was never smoker of tobacco. No barriers to communication noted, The patient speaks fluent Greenlandic. - Family history: Not pertinent. - : The pt / caregiver states he / she is not on anticoagulants. Home medication list is obtained from the patient. - Exposure Risk Screening:: None identified. Screenin/31 19:36 Screening information is obtained from the parent. Fall risk: No risks identified. mk4 Assistance ADL's: requires no assistance with activities of daily living. Abuse/DV Screen: The patient / caregiver reports he/she is: not in a situation that causes fear, pain or injury. Nutritional screening: No deficits noted. Advance Directives: Currently, there is no health care proxy. There is no active DNR order. There is no living will. There is no Power of Licensed Loan Officer Assistant. Advance directive information has not previously been placed in an [facility] medical record. Further advance directive information is declined. home support is adequate. Assessment: 19:19 General: pt remains in MRI at this time . tm5 20:00 General: pt remains in MRI at this time, has not returned yet. tm5 20:18 General: pt remains in MRI. tm5 20:59 General: per PRESTON Walls pt can have boxed meal & PO pain meds, awaiting orders. tm5 21:06 General: 1st contact with pt at this time, assessment done at this time as well . Pain: tm5 Location: headache Pain currently is 9 out of 10 on a pain scale. Also complains of nausea, photophobia. Neurological: Level of Consciousness is awake, alert, Oriented to person, place, time, Freezer Tunnel Operator are equal bilaterally Moves all extremities. Full function Speech is normal, Facial symmetry appears normal, Facial symmetry: tongue is midline, Pupils are PERRLA. Respiratory: Airway is patent Respiratory effort is even, unlabored, Respiratory pattern is regular, symmetrical, Breath sounds are clear bilaterally. GI: No deficits noted. : No deficits noted. Derm: Skin is pink, warm & dry. normal. 21:35 Reassessment: Patient appears in no apparent distress at this time. Patient states tm5 feeling better. Patient states symptoms have improved. 21:35 Neurological: Level of Consciousness is awake, alert, Oriented to person, place, time, tm5 Freezer Tunnel Operator are equal bilaterally Moves all extremities. Full function Speech is normal, Facial symmetry appears normal, Facial symmetry: tongue is midline, Pupils are PERRLA. 22:32 General: pt is actively vomiting at this time, after vomiting she is crying & screaming tm5 that her headache is back & describes it as stabbing pain to her frontal area, pt's mother appears upset that pt is still in pain with this headache, PRESTON Walls aware of this . 22:43 General: pt still with dry heaves & "stabbing" headache, PRESTON Walls again aware of this tm5 & no new orders received . 23:22 General: pt medicated per admission orders from Dr Ramirez, pt still complains of severe tm5 headache 9/10 & Nausea, lights off in the room & pt with head covered with blanket, mom remains at bedside, Neuro checks remain intact. 23:56 Reassessment: Patient appears in no apparent distress at this time. Patient states tm5 feeling better. Patient states symptoms have improved. Pain: Location: forehead Pain currently is 2 out of 10 on a pain scale. Quality of pain is described as dull. 05/22 01:12 Reassessment: Patient appears in no apparent distress at this time. pt resting with tm5 eyes closed, resp easy, mom remains at bedside. 02:11 Reassessment: Patient appears in no apparent distress at this time. Patient states tm5 feeling better. Patient states symptoms have improved. pt resting with eyes closed, resp easy, awaiting transfer to admission bed . 02:18 General: SBAR faxed & tubed to 4 [facility]. tm5 02:32 General: 4 PAV ready for pt's admission to the floor . tm5 Vital Signs: 05/21 21:06 BP 132 / 68; Pulse 74; Resp 18; Pulse Ox 99% on R/A; Pain 9/10; tm5 21:57 BP 127 / 58; Pulse 63; Resp 18; Temp 95.8(O); Pulse Ox 100% on R/A; Pain 6/10; annie 23:20 BP 122 / 62; Pulse 74; Resp 18; Pulse Ox 99% on R/A; Pain 9/10; tm5 23:56 BP 128 / 56; Pulse 70; Resp 18; Pulse Ox 99% on R/A; Pain 2/10; tm5 05/22 02:11 BP 116 / 72; Pulse 74; Resp 18; Temp 98.3(O); Pulse Ox 100% on R/A; Pain 2/10; tm5 Vitals: 02:09 Log In Time N/A - ambulance arrival. tm5 ED Course: 05/21 18:47 Patient visited by Fifi Mock, Center Medical Director. lbd 18:47 Patient moved to Waiting lbd 18:48 Enriqueta Ramirez is Private Physician. lbd 18:48 Patient moved to lbd 18:50 Robert Walls FNP is [facility]. ke 18:51 Patient visited by Robert Walls FNP. ke 18:51 Patient visited by Robert Walls FNP. ke 19:10 Triage Initiated mk4 19:19 Patient visited by Erica Richards RN. tm5 19:36 The patient / caregiver is instructed regarding the plan of care and ED course. mk4 19:49 Patient visited by Robert Walls FNP. ke 20:00 Patient visited by Erica Richards RN. tm5 20:18 Patient name changed from Irina\\S\\\\S\\Hayes\\S\\ to Irina\\S\\ \\S\\Hayes. EDMS 20:20 [facility] Payment Agreement was scanned into [employer] and attached to record. gjb 20:23 Patient visited by Robret Walls FNP. ke 20:23 -MRI-Spine,Thoracic without contrast Returned. EDMS 20:24 MRI Spine,Cervical without con Returned. EDMS 20:54 Patient visited by Robert Walls FNP. ke 21:[address] tm5 21:15 Patient visited by Erica Richards RN. tm5 21:15 Patient moved back from CT. tm5 21:29 -MRI-Spine, Lumbar without contrast Returned. EDMS 21:45 Enriqueta Ramirez is Referral Physician. ke 21:57 Patient visited by Jayashree Crawford PCA. annie 22:36 CT Head without contrast Returned. EDMS 22:43 Patient visited by Erica Richards RN. tm5 22:46 Patient visited by Erica Richards RN. tm5 22:59 Enriqueta Ramirez is Hospitalizing Provider. ke 23:08 Admission Orders was scanned into [employer] and attached to record. annie 23:22 Inserted saline lock: 20 gauge in left hand The patient tolerated the procedure well. tm5 23:56 Patient visited by Erica Richards RN. tm5 02 01:12 Patient visited by Erica Richards RN. tm5 01:12 Awaiting bed assignment. tm5 02:09 Patient visited by Erica Richards RN. tm5 02:10 No procedures done that require assistance. tm5 02:35 Admission Orders was scanned into [employer] and attached to record. annie Administered Medications: 05/21 20:58 Not Given (not present): LORazepam 1 mg IVP once; prior to mri ke 21:06 Drug: Metoclopramide 10 mg [metoclopramide 10 mg tablet (1 tabs)] Route: PO; tm5 21:35 Follow up: Response: Nausea is resolved; No Adverse Reaction tm5 21:06 Drug: LORazepam 1 mg [lorazepam 1 mg tablet (1 tabs)] Route: PO; tm5 21:35 Follow up: Response: Anxiety is improved; No Adverse Reaction tm5 21:06 Drug: Acetaminophen 650 mg [acetaminophen 325 mg tablet (2 tabs)] Route: PO; tm5 21:35 Follow up: Response: No Adverse Reaction; Pain is decreased tm5 22:32 Drug: Ondansetron ODT 8 mg [ondansetron 4 mg disintegrating tablet (2 tabs)] Route: PO; tm5 23:20 Follow up: Response: No Adverse Reaction; No significant change. tm5 22:50 Drug: acetaZOLAMIDE 250 mg [acetazolamide 250 mg tablet (1 tabs)] Route: PO; tm5 23:19 Follow up: Response: No Adverse Reaction tm5 23:20 Drug: morphine 2 mg [morphine 2 mg/mL intravenous cartridge (1 mL)] Route: IVP; Site: tm5 left hand; 23:57 Follow up: Response: No Adverse Reaction; Pain is decreased tm5 23:20 Drug: Ondansetron 4 mg [ondansetron HCl 2 mg/mL intravenous solution (2 mL)] Route: tm5 IVP; Site: left hand; 23:57 Follow up: Response: Nausea is resolved; No Adverse Reaction tm5 05/22 02:29 Drug: HYDROcodone-acetaminophen 1 tabs [hydrocodone 5 mg-acetaminophen 325 mg tablet (1 tm5 tabs)] Route: PO; Order Results: Radiology Order: -MRI-Spine, Lumbar without contrast Test: -MRI-Spine, Lumbar without contrast REASON FOR EXAMINATION: back pain; ; MRI of the lumbar spine without contrast; Clinical statement: Pain.; Technique: Multiecho multiplanar MRI images of the lumbar spine were obtained without administration; of contrast.; No comparison is available.; Findings: The lumbar vertebral bodies are in satisfactory position and alignment. No fractures or dis; locations are demonstrated. Normal heterogeneous bone marrow signal is noted. No osseous tumors are s; een. The intervertebral disc heights are well maintained and demonstrate normal signal. The filum ter; minale and conus medullaris appear unremarkable. The spinal cord demonstrates normal signal and conto; ur. The surrounding soft tissues are within normal limits.; At the lumbar vertebral levels, there is no evidence of disc herniation or protrusion. There is no ce; ntral canal stenosis. The neural foramina are patent bilaterally.; Impression: Unremarkable MRI examination of the lumbar spine.; ; Radiology Order: -MRI-Spine,Thoracic without contrast Test: -MRI-Spine,Thoracic without contrast REASON FOR EXAMINATION: back pain; ; MRI of the thoracic spine without contrast; Clinical statement: Pain.; Technique: Multiecho multiplanar MRI images of the thoracic spine were obtained without administratio; n of contrast.; No comparison is available.; Findings: The thoracic vertebral bodies are in satisfactory position and alignment. No fractures or d; islocations are demonstrated. The bone marrow appears unremarkable. Intervertebral disc spaces are we; ll maintained. There is no evidence of disc herniation or protrusion. The neural foramen are patent.; The facet joints are intact. The surrounding soft tissues are within normal limits.; Impression: Unremarkable MRI examination of the thoracic spine.; ; Radiology Order: MRI Spine,Cervical without con Test: MRI Spine,Cervical without con REASON FOR EXAMINATION: Headaches, back pain; ; MRI cervical spine without contrast; Clinical statement: Pain.; Technique: Multiecho multiplanar MRI images of the cervical spine were obtained without administratio; n of contrast.; No comparison is available.; Findings: The cervical vertebral bodies are in satisfactory position and alignment. No fractures or d; islocations are demonstrated. Normal heterogeneous bone marrow signal is noted. No osseous tumors are; seen. The visualized portions of the posterior fossa are unremarkable. The cervical cranial junction; is intact. The intervertebral disc spaces and heights are well-maintained. The facet joints are inta; ct without evidence of subluxation. The cervical spinal cord demonstrates normal signal and contour.; The surrounding soft tissues are within normal limits.; At the cervical vertebral levels, there is no evidence of disc herniation or protrusion. There is no; central canal stenosis. The neural foramina are patent bilaterally.; Impression: Unremarkable MRI examination of the cervical spine.; ; Radiology Order: CT Head without contrast Test: CT Head without contrast REASON FOR EXAMINATION: headaches,blurred vision,backpain (in MRI now); ; CT of the head; Clinical history: Headache.; Comparison: MRI, 05/20/2016.; Technique: Multiple axial CT images were obtained through the head without administration of contrast; .; Findings: The ventricles and sulci are symmetric bilaterally. There is no evidence of acute hemorrhag; e or infarct. There is no midline shift, mass effect, or extra-axial fluid collection. The osseous st; ructures are unremarkable. The visualized paranasal sinuses and mastoid air cells are clear.; Impression: Negative study.; ; Outcome: 05/21 21:46 Discharge ordered by Provider. arnold 22:59 Decision to Hospitalize by Provider. arnold 05/22 02:10 CT Study completed. MRI Study completed. Property :Personal belongings accompany Pt. tm5 02:10 Discharge Assessment: Patient awake, alert and oriented x 3. No cognitive and/or tm5 functional deficits noted. Patient verbalized understanding of disposition instructions. patient administered narcotics - yes. Patient was admitted to the hospital or transferred to another facility. 02:10 The following High Risk Discharge criteria are identified: None. Condition: good tm5 Condition: stable Condition: improved. 02:58 Patient left the ED. tm5 Signatures: Dispatcher [employer] EDMS Fifi Mock, Center Medical Director Unit lbd Robert Walls, EXPANDER MACHINE OPERATOR EXPANDER MACHINE OPERATOR Jayashree Alamo, IT SECURITY ANALYST IT SECURITY ANALYST Li Jernigan RN RN [email or web address] Rolanda Garcia Tonya, RN RN tm5 Corrections: (The following items were deleted from the chart) 05/21 22:46 22:43 General: pt still with dry heaves & "stabbing" headache. tm5 tm5 23:22 23:20 morphine 2 mg IVP in right hand tm5 tm5 05/22 01:13 05/21 23:56 BP 188 / 56; Pulse 70bpm; Resp 18bpm; Pulse Ox 99% RA; Pain 2/10; tm5 tm5 MTDD
--- NOTE | 2016-05-22 02:58 | EDDOCDS ---
Physician Documentation [facility] Name: Irina Vincent Age: 20 yrs Sex: Female : 1995 Arrival Date: 05/21/2016 Time: 18:46 Bed 14 Private MD: Enriqueta Ramirez J. Disposition: 05/21/16 22:59 Hospitalization ordered by Enriqueta Ramirez for Inpatient Admission. Preliminary diagnosis is Headache. - Bed requested for [address] [place]. - Status is Inpatient Admission. tm5 - Condition is Stable. - Problem is an ongoing problem. - Symptoms have worsened. Historical: - Allergies: no known allergies; - Home Meds: 1. diamox every 4 hours 2. Excedrin Migraine 250-250-65 mg Oral tab as needed 3. monocycline was told to stop taking - PMHx: Migraine Headaches; - PSHx: none; - Social history: Smoking status: Patient states was never smoker of tobacco. No barriers to communication noted, The patient speaks fluent Slovenian. - Family history: Not pertinent. - : The pt / caregiver states he / she is not on anticoagulants. Home medication list is obtained from the patient. - Exposure Risk Screening:: None identified. Vital Signs: 05/21 21:06 BP 132 / 68; Pulse 74; Resp 18; Pulse Ox 99% on R/A; Pain 9/10; tm5 21:57 BP 127 / 58; Pulse 63; Resp 18; Temp 95.8(O); Pulse Ox 100% on R/A; Pain 6/10; annie 23:20 BP 122 / 62; Pulse 74; Resp 18; Pulse Ox 99% on R/A; Pain 9/10; tm5 23:56 BP 128 / 56; Pulse 70; Resp 18; Pulse Ox 99% on R/A; Pain 2/10; tm5 05/22 02:11 BP 116 / 72; Pulse 74; Resp 18; Temp 98.3(O); Pulse Ox 100% on R/A; Pain 2/10; tm5 MDM: 05/21 18:52 MRI Screening Tool - Place on chart, inform RN ordered. ke 18:52 LORazepam 1 mg IVP once; prior to mri ordered. ke 18:54 -MRI-Spine, Lumbar without contrast Ordered. EDMS 18:54 -MRI-Spine,Thoracic without contrast Ordered. EDMS 19:08 MRI Screening Tool - Place on chart, inform RN complete. mk4 19:13 MRI Spine,Cervical without con Ordered. EDMS 19:17 CT Head without contrast Ordered. EDMS 19:54 Financial registration complete. gjb 20:20 [facility] Payment Agreement was scanned into [employer] and attached to record. gjb 20:59 Metoclopramide 10 mg PO once ordered. ke 20:59 LORazepam 1 mg PO once ordered. ke 20:59 Acetaminophen Tablet 650 mg PO once ordered. ke 21:00 REGULAR+DIET ordered. EDMS 22:00 acetaZOLAMIDE 250 mg PO once ordered. ke 22:26 Ondansetron ODT Oral Disintegrating Tablet 8 mg PO once ordered. ke 23:08 Admission Orders was scanned into [employer] and attached to record. annie 23:21 morphine 2 mg IVP once ordered. tm5 23:21 Ondansetron 4 mg IVP once ordered. tm5 05/22 02:27 HYDROcodone-acetaminophen 5 mg-325 mg 1 tabs PO once ordered. tm5 02:35 Admission Orders was scanned into [employer] and attached to record. annie 02:56 REGULAR DIET ordered. EDMS Administered Medications: 05/21 20:58 Not Given (not present): LORazepam 1 mg IVP once; prior to mri ke 21:06 Drug: Metoclopramide 10 mg [metoclopramide 10 mg tablet (1 tabs)] Route: PO; tm5 21:35 Follow up: Response: Nausea is resolved; No Adverse Reaction tm5 21:06 Drug: LORazepam 1 mg [lorazepam 1 mg tablet (1 tabs)] Route: PO; tm5 21:35 Follow up: Response: Anxiety is improved; No Adverse Reaction tm5 21:06 Drug: Acetaminophen 650 mg [acetaminophen 325 mg tablet (2 tabs)] Route: PO; tm5 21:35 Follow up: Response: No Adverse Reaction; Pain is decreased tm5 22:32 Drug: Ondansetron ODT 8 mg [ondansetron 4 mg disintegrating tablet (2 tabs)] Route: PO; tm5 23:20 Follow up: Response: No Adverse Reaction; No significant change. tm5 22:50 Drug: acetaZOLAMIDE 250 mg [acetazolamide 250 mg tablet (1 tabs)] Route: PO; tm5 23:19 Follow up: Response: No Adverse Reaction tm5 23:20 Drug: morphine 2 mg [morphine 2 mg/mL intravenous cartridge (1 mL)] Route: IVP; Site: tm5 left hand; 23:57 Follow up: Response: No Adverse Reaction; Pain is decreased tm5 23:20 Drug: Ondansetron 4 mg [ondansetron HCl 2 mg/mL intravenous solution (2 mL)] Route: tm5 IVP; Site: left hand; 23:57 Follow up: Response: Nausea is resolved; No Adverse Reaction tm5 05/22 02:29 Drug: HYDROcodone-acetaminophen 1 tabs [hydrocodone 5 mg-acetaminophen 325 mg tablet (1 tm5 tabs)] Route: PO; Signatures: Dispatcher [employer] EDMS Robert Walls, CINEMA OR THEATRE MANAGER CINEMA OR THEATRE MANAGER Jayashree Alamo, MAKE UP ARRANGER MAKE UP ARRANGER Renetta Mckeon RN RN [id number] Li Copeland RN RN mk4 Rolanda Garcia TonyaRN RN tm5 The chart was reviewed and I authenticate all verbal orders and agree with the evaluation and treatment provided.Corrections: (The following items were deleted from the chart) 05/21 20:04 19:50 MRI-Spine, Cervical without con+MR ordered. EDMS EDMS 20:58 18:52 IV Saline Lock ordered. arnold barrett 21: 18:54 COMPLETE BLOOD COUNT+LAB ordered. EDMS EDMS 21:01 18:54 BASIC METABOLIC PROFILE+LAB ordered. EDMS EDMS Attachments: 20:20 [facility] Payment Agreement gj 23:08 Admission Orders annie 05/22 02:35 Admission Orders annie MTDD
[2016-05-22] MEDS ORDERED: ONDANSETRON 4MG/2ML VIAL (J2405) IV PRN (03:30)
[2016-05-22] MEDS: MORPHINE 2 MG/ML 1ML SYRINGE IV PRN ×3 (03:35→12:27)
[2016-05-22] MEDS: KCL 20MEQ IN D5/0.45NS 1000ML 1,000 ML IV SCH ×2 (03:35→15:36)
[2016-05-22] MEDS: D5W MINI IV SCH ×2 (03:58→15:35)
[2016-05-22] MEDS: [UNRECOGNIZED DRUG - OTHER] IV SCH ×2 (03:58→15:35)
[2016-05-22] MEDS: NORCO, ANEXSIA 5/325MG TABLET (HYDROcodone/ACETAMINOPHEN) PO PRN ×2 (11:08→15:35)
[2016-05-22] MEDS ORDERED: METOCLOPRAMIDE INJ 10MG/2ML VIAL (J2765) IV PRN (12:15)
--- NOTE | 2016-05-22 16:45 | CR.PDOC ---
[facility] Consultation Consultation DATE OF CONSULTATION: May 21, 2016 at 18:46 ATTENDING PHYSICIAN: Dr. Ramirez REASON FOR CONSULTATION/CHIEF COMPLAINT: Presented to the ER with complaints of headache that has been ongoing for greater than 1 week. HISTORY OF PRESENT ILLNESS: Patient is a 20 year old female with a PMHx of acne and depression / anxiety who presented to the ER because of persistent headache. Patient noted that on 05/11 she began to experience nausea, dizziness and a headache. She noted that at that time she had a whooshing sound in her ear. Over the next 2 days (05/13) her symptoms progressed to vomiting and blurry vision. She went to the ER at that time and received a CT scan which was negative. Her symptoms were temporarily controlled with anti-nausea and pain control medications. She was given a prescription for cough medications. She followed up with her retail center receptionist (Dr. Fitch) on 05/20 who found she had papilledema and sent her to the ER. In the ER again she received a CT scan and then a spinal tap which revealed elevated pressures of 80. She was diagnosed with pseudotumor cerebri. She was prescribed Diamox and sent home. She saw Dr. Ramirez on 05/20 for headaches and pseudotumor cerebri and received a Lidocaine injection which provided some relief posteriorly. But she noted her anterior headaches persisted. She then followed up with her retail center receptionist again on 05/21 and was found to have an hemorrhages in both eyes. She returned back to the ER and received a repeat spinal tap, but pressures were no longer elevated at this time. She was admitted for symptomatic control of pain and nausea. Patient received multiple imaging of her head. On her MRV there was an area of questionable filling defect, suspicious for a thrombus. Hospitalist team was consulted for hypercoagulability workup. ALLERGIES: Please see below. HOME MEDICATIONS: Please see below. PAST MEDICAL HISTORY: Acne and depression / anxiety PAST SURGICAL HISTORY: None FAMILY HISTORY: - Mother with no medical history - Father with history of DLP and DM2 - No history of malignancies SOCIAL HISTORY: - Denies the use of tobacco. Drinks socially. Smokes marijuana occasionally. - Denies recent travel or sick contacts - Lives with parents - Occupation; goes to college REVIEW OF SYSTEMS: Constitutional: Denies weight loss, change in appetite, or recent trauma Eyes: Positive visual changes and eye pain with light Ears, Nose, Throat: Denies nose bleeds, or difficulty swallowing Cardiovascular: Denies chest pain, sweating, or orthopnea Respiratory: Denies cough, wheezing, or shortness of breath GI: Positive nausea and vomiting, No abdominal pain, diarrhea or constipation : Denies pain with urination or frequency Musculoskeletal: Denies joint pain or swelling Neuro / Psych: Denies muscle weakness or sensory loss Skin: No skin rashes noted All other review of systems negative; otherwise stated in history of present illness PHYSICAL EXAMINATION: - Vitals: BP 130/70, HR 108, RR 20, Sat 98%RA, Temp 98.8F - General: Lying in bed, No acute distress, Speaking in full sentences, AAOx3 - HEENT: NC, AT, PERRLA, EOMI - CVS: RRR, +S1S2, - Murmurs / rubs / gallops - Lungs: Fair air entry bilaterally, Clear to auscultation, No wheezing / rales / rhonchi - Abdomen: Soft, Non-distended, Non-tender, + Bowel sounds x 4 - Extremities: + PPx4, No lower extremity edema, No calf tenderness - Neuro: No focal motor or sensory deficit - Skin: No visible rashes LABORATORY DATA: Please see below. ASSESSMENT/PLAN: Headache likely 2/2 pseudotumor cerebri, possibly 2/2 thrombus formation 2/2 Oral contraceptives or hypercoagulabe state - Presented with headache for >2 weeks duration - Was found to have an elevated spinal tap pressure; subsequent tap, pressures had normalized - Physical reveals no focal deficits or visual problems at this time - MRV revealed possible filling defect - If thrombus is present, it is likely 2/2 oral contraceptive pills - Will check hypercoagulability workup - Symptoms being managed with pain control and anti-emetics - c/w Azetazolamide - Managed by primary team, Dr. Ramirez - Neurology has been consulted Acne - Spironolactone and Minocycline have been discontinued Depression / anxiety - Duloxetine as outpatient has been discontinued DVT prophylaxis - Will c/w SCDs Vital Signs/I&O Vital Signs Date Time Temp Pulse Resp B/P Pulse Ox O2 Delivery O2 Flow Rate FiO2 05/22/16 16:10 16 05/22/16 15:05 98.8 108 130/70 98 Room Air I&O- Last 24 Hours up to 6 AM 05/22/16 06:00 Intake Total 240 ml Output Total 0 ml Balance 240 ml Laboratory Data Labs 24H Laboratory Tests 2 05/22/16 08:38: Urine Amorphous Sediment MODERATEH, Urine Appearance CLOUDYH, Urine Color YELLOW , Urine pH 8.0, Urine Specific [place] 1.015, Urine Protein NEGATIVE, Urine Glucose (UA) NEGATIVE, Urine Ketones 1+H, Urine Urobilinogen 0.2, Urine Bilirubin NEGATIVE, Urine Leukocyte Esterase NEGATIVE, Urine Bacteria (Auto) 1+H , Urine Blood 2+H, Urine Calcium Carbonate Cryst(Auto) , Urine Calcium Oxalate Cryst (Auto) , Urine Calcium Phosphate Stephie (Auto) , Urine Cellular Casts , Urine Cystine Crystals , Urine Granular Casts (Auto) , Urine Hyaline Casts (Auto ) 0, Urine Leucine Crystals , Urine Mucus (Auto) SMALL, Urine Nitrite NEGATIVE, Urine Oval Fat Bodies (Auto) , Urine RBC (Auto) 2, Urine Renal Epithelial Cells , Urine Sperm (Auto) , Urine Squamous Epithelial Cells 0, Urine Transitional Epithelial Cells , Urine Trichomonas (Auto) , Urine Triple Phosphate Cryst (Auto ) , Urine Tyrosine Crystals , Urine Uric Acid Crystals (Auto) , Urine WBC (Auto ) 0, Urine Waxy Casts (Auto) , Urine Yeast-Like Cells (Auto) Allergies Coded Allergies: No Known Drug Allergy (Verified Allergy, Unknown, 05/21/16) Home Medications Scheduled (Multi Adult Gummies) 1 Chw Chw 1 CHW PO DAILY (Reported) ([Vitamin B-12 Gummy]) 2 CHEW PO DAILY (Reported) Acetazolamide (Acetazolamide) 250 Mg Tab 250 MG PO Q4H (Reported) Cholecalciferol (Vitamin D3 Gummies) 1,000 Unit Chw 2,000 UNIT PO DAILY ( Reported) Duloxetine Hcl (Duloxetine HCl) 30 Mg Cap 30 MG PO DAILY (Reported) Scheduled PRN Acetaminophen/Aspirin/Caffein (Excedrin Migraine 250-250-65 mg) 1 Tab Tab 1 TAB PO BID PRN PRN MIGRAINE (Reported) NICKOLAS COOK MD May 22, 2016 16:45
[2016-05-22 17:45] LABS: BASO % 0.4 % (0.0-1.0); EOS % 0.3 % (0.0-3.0); LARGE UNSTAINED CELL # 0.1 K/mm3 (0.0-0.4); LARGE UNSTAINED CELL % 1.6 % (0.0-4.0); LYMPH # 1.9 K/mm3 (1.5-6.5); LYMPH % 22.4 % (24.0-44.0); MEAN CORPUSCULAR HEMOGLOBIN 27.5 pg (27.0-33.0); MEAN CORPUSCULAR HGB CONC 32.5 g/dl (32.0-36.5); MEAN CORPUSCULAR VOLUME 84.5 fl (80.0-96.0); MONO # 0.4 K/mm3 (0.0-0.8); MONO % 4.5 % (0.0-5.0); NEUTROPHILS # 5.9 K/mm3 (1.8-7.7); NEUTROPHILS % 70.8 % (36.0-66.0); PLATELET COUNT, AUTOMATED 321 k/mm3 (150-450); RED CELL DISTRIBUTION WIDTH 13.5 % (11.5-14.5); WHITE BLOOD COUNT 8.4 K/mm3 (4.0-10.0)
[2016-05-22 17:50] LABS: INR 1.12
[2016-05-22 18:43] LABS: ANION GAP 11 MEQ/L (8-16); BLOOD UREA NITROGEN 8 MG/DL (7-18); CARBON DIOXIDE LEVEL 19 MEQ/L (21-32); CHLORIDE LEVEL 108 MEQ/L (98-107); GLUCOSE, FASTING 105 MG/DL (70-105); POTASSIUM SERUM 3.5 MEQ/L (3.5-5.1); SODIUM LEVEL 138 MEQ/L (136-145)
[2016-05-22 18:44] LABS: ALBUMIN 3.6 GM/DL (3.2-5.2); ALKALINE PHOSPHATASE 68 U/L (45-117); ALT/SGPT 20 U/L (12-78); AST/SGOT 7 U/L (15-37); BILIRUBIN,TOTAL 0.5 MG/DL (0.2-1.0); CALCIUM LEVEL 8.4 MG/DL (8.5-10.1); MAGNESIUM LEVEL 2.1 MG/DL (1.4-2.0); PHOSPHORUS LEVEL 2.4 MG/DL (2.5-4.9); TOTAL PROTEIN 7.2 GM/DL (6.4-8.2)
[2016-05-23] MEDS: [UNRECOGNIZED DRUG - OTHER] IV SCH ×2 (04:00→17:04)
[2016-05-23] MEDS: KCL 20MEQ IN D5/0.45NS 1000ML 1,000 ML IV SCH ×2 (04:00→17:06)
[2016-05-23] MEDS: D5W MINI IV SCH ×2 (04:00→17:04)
[2016-05-23] MEDS: NORCO, ANEXSIA 5/325MG TABLET (HYDROcodone/ACETAMINOPHEN) PO PRN ×3 (04:01→19:50)
[2016-05-23 06:00] VITALS: BP 108/55
[2016-05-23 06:33] LABS: BASO % 0.3 % (0.0-1.0); EOS # 0.1 K/mm3 (0.0-0.50); EOS % 1.1 % (0.0-3.0); LARGE UNSTAINED CELL # 0.2 K/mm3 (0.0-0.4); LARGE UNSTAINED CELL % 2.1 % (0.0-4.0); LYMPH # 2.9 K/mm3 (1.5-6.5); LYMPH % 39.9 % (24.0-44.0); MEAN CORPUSCULAR HEMOGLOBIN 27.8 pg (27.0-33.0); MEAN CORPUSCULAR HGB CONC 32.4 g/dl (32.0-36.5); MEAN CORPUSCULAR VOLUME 85.9 fl (80.0-96.0); MONO # 0.3 K/mm3 (0.0-0.8); MONO % 4.5 % (0.0-5.0); NEUTROPHILS # 3.8 K/mm3 (1.8-7.7); NEUTROPHILS % 52.1 % (36.0-66.0); PLATELET COUNT, AUTOMATED 284 k/mm3 (150-450); RED CELL DISTRIBUTION WIDTH 13.7 % (11.5-14.5); WHITE BLOOD COUNT 7.3 K/mm3 (4.0-10.0)
[2016-05-23 06:46] LABS: ALBUMIN 3.1 GM/DL (3.2-5.2); ALBUMIN/GLOBULIN RATIO 0.86 (1.00-1.93); ALKALINE PHOSPHATASE 61 U/L (45-117); ALT/SGPT 19 U/L (12-78); ANION GAP 12 MEQ/L (8-16); AST/SGOT 13 U/L (15-37); BILIRUBIN,TOTAL 0.3 MG/DL (0.2-1.0); BLOOD UREA NITROGEN 8 MG/DL (7-18); CALCIUM LEVEL 8.4 MG/DL (8.5-10.1); CARBON DIOXIDE LEVEL 17 MEQ/L (21-32); CHLORIDE LEVEL 112 MEQ/L (98-107); CREATININE FOR GFR 0.67 MG/DL (0.55-1.02); GLUCOSE, FASTING 98 MG/DL (70-105); MAGNESIUM LEVEL 2.2 MG/DL (1.4-2.0); POTASSIUM SERUM 3.6 MEQ/L (3.5-5.1); SODIUM LEVEL 141 MEQ/L (136-145); TOTAL PROTEIN 6.7 GM/DL (6.4-8.2)
[2016-05-23 08:00] VITALS: BP 119/60
[2016-05-23] MEDS ORDERED: INFLUENZA QUADRIVALENT PF VACCINE 0.5ML SYRINGE/VIAL (90686) IM ONE (09:00)
[2016-05-23 14:05] VITALS: BP 125/55
--- NOTE | 2016-05-23 15:32 | IPN ---
DATE: 05/23/2016 SUBJECTIVE: The patient seen and examined in the room today. The patient was resting in bed. During the encounter, the patient's parents were also in the room and provided significant information. They stated the patient's headache and vision disturbance show significant improvement with Diamox. The patient is finally able to get some rest. No significant event reported per nursing staff. OBJECTIVE: VITAL SIGNS: Temperature 97.5, pulse 77, respirations 15, blood pressure is 108/55, pulse oximetry 98% on room air. GENERAL: Resting in bed. No sign of acute distress. HEENT: Normocephalic, atraumatic. CARDIOVASCULAR: Positive S1, S2, regular rate. LUNGS: Clear to auscultation bilaterally. No wheezes or rhonchi. ABDOMEN: Soft, nontender, nondistended. Bowel sounds present. EXTREMITIES: No edema. No cyanosis. LABORATORY DATA: WBC is 7.3, hemoglobin 12.4, hematocrit 38.2, platelet count is 284. Sodium 141, potassium 3.6, chloride 112. Carbon dioxide 17, BUN 8, creatinine 0.67. Fasting glucose 98, calcium 8.4, magnesium 2.2. Total bilirubin is 0.3. AST 13, ALT 19, alkaline phosphatase 61. Total protein 6.7. Albumin 3.1. ASSESSMENT AND PLAN: 1. Anxiety and depression. The patient was taking Cymbalta at home. Currently is discontinued due to concern that there is a 13 to 14% chance you can create headache and drowsiness for the user. Currently, the patient does have a significant headache. May be due to pseudotumor cerebri and in order to avoid possible adverse affect, we will hold the Cymbalta at this moment. 2. Acne. 3. Headache, secondary to possible pseudotumor cerebri versus venous thrombus formation secondary to oral contraceptive use or hypercoagulable state. Dr. Ramirez, neurosurgery is the primary team. Currently, the lab for hypercoagulability workup is pending. Will continue to monitor the patient. The patient has been taking Diamox and her vision disturbance and headache has been improving. Neurology is being consulted. 4. Deep venous thrombosis (DVT) prophylaxis, on thromboembolism deterrents (TEDs), sequential and compression devices.
--- NOTE | 2016-05-24 03:59 | EDDOCDS ---
Nurse's Notes [facility] Name: rIina Vincent Age: 20 yrs Sex: Female : 1995 Arrival Date: 05/21/2016 Time: 18:46 Bed 14 Private MD: Enriqueta Ramirez J. Diagnosis: Headache Presentation: 05/21 19:08 Presenting complaint: Patient states: arrival from interventional radiology after mk4 spinal tap, immed upon arrival pt transferred back to radiology for MRI. This patient has no additional risk factors. Adult Sepsis Screening: The patient does not have new or worsening altered mentation. Patient's respiratory rate is less than 22. Systolic blood pressure is greater than 100. Patient has a qSOFA score of 0- Negative Sepsis Screen. Suicide/Homicide risk assessment- the patient denies having any suicidal and/or homicidal ideations and does not present with any other emotional, behavioral or mental health complaints. Status: Patient is not a shared services and outsourcing manager or dependent. Transition of care: patient was not received from another setting of care. 19:08 Acuity: DANIELLE Level 2 mk4 19:08 Method Of Arrival: Other 4 Triage Assessment: 19:11 General: Appears uncomfortable. HIV screening NA for this visit Offered previously. mk4 Neurological: Level of Consciousness is awake, alert, Oriented to person, place, time. 05/22 02:09 Headache History: This patient has a history of headaches and the character of this tm5 headache is like all previous headaches. Historical: - Allergies: no known allergies; - Home Meds: 1. diamox every 4 hours 2. Excedrin Migraine 250-250-65 mg Oral tab as needed 3. monocycline was told to stop taking - PMHx: Migraine Headaches; - PSHx: none; - Social history: Smoking status: Patient states was never smoker of tobacco. No barriers to communication noted, The patient speaks fluent Maori. - Family history: Not pertinent. - : The pt / caregiver states he / she is not on anticoagulants. Home medication list is obtained from the patient. - Exposure Risk Screening:: None identified. Screenin/31 19:36 Screening information is obtained from the parent. Fall risk: No risks identified. mk4 Assistance ADL's: requires no assistance with activities of daily living. Abuse/DV Screen: The patient / caregiver reports he/she is: not in a situation that causes fear, pain or injury. Nutritional screening: No deficits noted. Advance Directives: Currently, there is no health care proxy. There is no active DNR order. There is no living will. There is no Power of System Safety Manager. Advance directive information has not previously been placed in an [facility] medical record. Further advance directive information is declined. home support is adequate. Assessment: 19:19 General: pt remains in MRI at this time . tm5 20:00 General: pt remains in MRI at this time, has not returned yet. tm5 20:18 General: pt remains in MRI. tm5 20:59 General: per PRESTON Walls pt can have boxed meal & PO pain meds, awaiting orders. tm5 21:06 General: 1st contact with pt at this time, assessment done at this time as well . Pain: tm5 Location: headache Pain currently is 9 out of 10 on a pain scale. Also complains of nausea, photophobia. Neurological: Level of Consciousness is awake, alert, Oriented to person, place, time, Risk Control Officer are equal bilaterally Moves all extremities. Full function Speech is normal, Facial symmetry appears normal, Facial symmetry: tongue is midline, Pupils are PERRLA. Respiratory: Airway is patent Respiratory effort is even, unlabored, Respiratory pattern is regular, symmetrical, Breath sounds are clear bilaterally. GI: No deficits noted. : No deficits noted. Derm: Skin is pink, warm & dry. normal. 21:35 Reassessment: Patient appears in no apparent distress at this time. Patient states tm5 feeling better. Patient states symptoms have improved. 21:35 Neurological: Level of Consciousness is awake, alert, Oriented to person, place, time, tm5 Risk Control Officer are equal bilaterally Moves all extremities. Full function Speech is normal, Facial symmetry appears normal, Facial symmetry: tongue is midline, Pupils are PERRLA. 22:32 General: pt is actively vomiting at this time, after vomiting she is crying & screaming tm5 that her headache is back & describes it as stabbing pain to her frontal area, pt's mother appears upset that pt is still in pain with this headache, PRESTON Walls aware of this . 22:43 General: pt still with dry heaves & "stabbing" headache, PRESTON Walls again aware of this tm5 & no new orders received . 23:22 General: pt medicated per admission orders from Dr Ramirez, pt still complains of severe tm5 headache 9/10 & Nausea, lights off in the room & pt with head covered with blanket, mom remains at bedside, Neuro checks remain intact. 23:56 Reassessment: Patient appears in no apparent distress at this time. Patient states tm5 feeling better. Patient states symptoms have improved. Pain: Location: forehead Pain currently is 2 out of 10 on a pain scale. Quality of pain is described as dull. 05/22 01:12 Reassessment: Patient appears in no apparent distress at this time. pt resting with tm5 eyes closed, resp easy, mom remains at bedside. 02:11 Reassessment: Patient appears in no apparent distress at this time. Patient states tm5 feeling better. Patient states symptoms have improved. pt resting with eyes closed, resp easy, awaiting transfer to admission bed . 02:18 General: SBAR faxed & tubed to 4 PAV. tm5 02:32 General: 4 PAV ready for pt's admission to the floor . tm5 Vital Signs: 05/21 21:06 BP 132 / 68; Pulse 74; Resp 18; Pulse Ox 99% on R/A; Pain 9/10; tm5 21:57 BP 127 / 58; Pulse 63; Resp 18; Temp 95.8(O); Pulse Ox 100% on R/A; Pain 6/10; annie 23:20 BP 122 / 62; Pulse 74; Resp 18; Pulse Ox 99% on R/A; Pain 9/10; tm5 23:56 BP 128 / 56; Pulse 70; Resp 18; Pulse Ox 99% on R/A; Pain 2/10; tm5 05/22 02:11 BP 116 / 72; Pulse 74; Resp 18; Temp 98.3(O); Pulse Ox 100% on R/A; Pain 2/10; tm5 Vitals: 02:09 Log In Time N/A - ambulance arrival. tm5 ED Course: 05/21 18:47 Patient visited by Fifi Mock, Quarry Manager. lbd 18:47 Patient moved to Waiting lbd 18:48 Enriqueta Ramirez is Private Physician. lbd 18:48 Patient moved to lbd 18:50 Robert Walls FNP is [facility]. ke 18:51 Patient visited by Robert Walls FNP. ke 18:51 Patient visited by Robert Walls FNP. ke 19:10 Triage Initiated mk4 19:19 Patient visited by Erica Richards RN. tm5 19:36 The patient / caregiver is instructed regarding the plan of care and ED course. mk4 19:49 Patient visited by Robert Walls FNP. ke 20:00 Patient visited by Erica Richards RN. tm5 20:18 Patient name changed from Irina\\S\\\\S\\Creek\\S\\ to Irina\\S\\ \\S\\Creek. EDMS 20:20 [facility] Payment Agreement was scanned into [employer] and attached to record. gjb 20:23 Patient visited by Robert Walls FNP. ke 20:23 -MRI-Spine,Thoracic without contrast Returned. EDMS 20:24 MRI Spine,Cervical without con Returned. EDMS 20:54 Patient visited by Robert Walls FNP. ke 21:[address] tm5 21:15 Patient visited by Erica Richards RN. tm5 21:15 Patient moved back from CT. tm5 21:29 -MRI-Spine, Lumbar without contrast Returned. EDMS 21:45 Enriqueta Ramirez is Referral Physician. ke 21:57 Patient visited by Jayashree Crawford PCA. annie 22:36 CT Head without contrast Returned. EDMS 22:43 Patient visited by Erica Richards RN. tm5 22:46 Patient visited by Erica Richards RN. tm5 22:59 Enriqueta Ramirez is Hospitalizing Provider. ke 23:08 Admission Orders was scanned into [employer] and attached to record. annie 23:22 Inserted saline lock: 20 gauge in left hand The patient tolerated the procedure well. tm5 23:56 Patient visited by Erica Richards RN. tm5 02 01:12 Patient visited by Erica Richards RN. tm5 01:12 Awaiting bed assignment. tm5 02:09 Patient visited by Erica Richards RN. tm5 02:10 No procedures done that require assistance. tm5 02:35 Admission Orders was scanned into [employer] and attached to record. annie 12:26 T-Sheet-- Draft Copy was scanned into [employer] and attached to record. gb Administered Medications: 05/21 20:58 Not Given (not present): LORazepam 1 mg IVP once; prior to mri ke 21:06 Drug: Metoclopramide 10 mg [metoclopramide 10 mg tablet (1 tabs)] Route: PO; tm5 21:35 Follow up: Response: Nausea is resolved; No Adverse Reaction tm5 21:06 Drug: LORazepam 1 mg [lorazepam 1 mg tablet (1 tabs)] Route: PO; tm5 21:35 Follow up: Response: Anxiety is improved; No Adverse Reaction tm5 21:06 Drug: Acetaminophen 650 mg [acetaminophen 325 mg tablet (2 tabs)] Route: PO; tm5 21:35 Follow up: Response: No Adverse Reaction; Pain is decreased tm5 22:32 Drug: Ondansetron ODT 8 mg [ondansetron 4 mg disintegrating tablet (2 tabs)] Route: PO; tm5 23:20 Follow up: Response: No Adverse Reaction; No significant change. tm5 22:50 Drug: acetaZOLAMIDE 250 mg [acetazolamide 250 mg tablet (1 tabs)] Route: PO; tm5 23:19 Follow up: Response: No Adverse Reaction tm5 23:20 Drug: morphine 2 mg [morphine 2 mg/mL intravenous cartridge (1 mL)] Route: IVP; Site: tm5 left hand; 23:57 Follow up: Response: No Adverse Reaction; Pain is decreased tm5 23:20 Drug: Ondansetron 4 mg [ondansetron HCl 2 mg/mL intravenous solution (2 mL)] Route: tm5 IVP; Site: left hand; 23:57 Follow up: Response: Nausea is resolved; No Adverse Reaction tm5 05/22 02:29 Drug: HYDROcodone-acetaminophen 1 tabs [hydrocodone 5 mg-acetaminophen 325 mg tablet (1 tm5 tabs)] Route: PO; Order Results: Radiology Order: -MRI-Spine, Lumbar without contrast Test: -MRI-Spine, Lumbar without contrast REASON FOR EXAMINATION: back pain; ; MRI of the lumbar spine without contrast; Clinical statement: Pain.; Technique: Multiecho multiplanar MRI images of the lumbar spine were obtained without administration; of contrast.; No comparison is available.; Findings: The lumbar vertebral bodies are in satisfactory position and alignment. No fractures or dis; locations are demonstrated. Normal heterogeneous bone marrow signal is noted. No osseous tumors are s; een. The intervertebral disc heights are well maintained and demonstrate normal signal. The filum ter; minale and conus medullaris appear unremarkable. The spinal cord demonstrates normal signal and conto; ur. The surrounding soft tissues are within normal limits.; At the lumbar vertebral levels, there is no evidence of disc herniation or protrusion. There is no ce; ntral canal stenosis. The neural foramina are patent bilaterally.; Impression: Unremarkable MRI examination of the lumbar spine.; ; Radiology Order: -MRI-Spine,Thoracic without contrast Test: -MRI-Spine,Thoracic without contrast REASON FOR EXAMINATION: back pain; ; MRI of the thoracic spine without contrast; Clinical statement: Pain.; Technique: Multiecho multiplanar MRI images of the thoracic spine were obtained without administratio; n of contrast.; No comparison is available.; Findings: The thoracic vertebral bodies are in satisfactory position and alignment. No fractures or d; islocations are demonstrated. The bone marrow appears unremarkable. Intervertebral disc spaces are we; ll maintained. There is no evidence of disc herniation or protrusion. The neural foramen are patent.; The facet joints are intact. The surrounding soft tissues are within normal limits.; Impression: Unremarkable MRI examination of the thoracic spine.; ; Radiology Order: MRI Spine,Cervical without con Test: MRI Spine,Cervical without con REASON FOR EXAMINATION: Headaches, back pain; ; MRI cervical spine without contrast; Clinical statement: Pain.; Technique: Multiecho multiplanar MRI images of the cervical spine were obtained without administratio; n of contrast.; No comparison is available.; Findings: The cervical vertebral bodies are in satisfactory position and alignment. No fractures or d; islocations are demonstrated. Normal heterogeneous bone marrow signal is noted. No osseous tumors are; seen. The visualized portions of the posterior fossa are unremarkable. The cervical cranial junction; is intact. The intervertebral disc spaces and heights are well-maintained. The facet joints are inta; ct without evidence of subluxation. The cervical spinal cord demonstrates normal signal and contour.; The surrounding soft tissues are within normal limits.; At the cervical vertebral levels, there is no evidence of disc herniation or protrusion. There is no; central canal stenosis. The neural foramina are patent bilaterally.; Impression: Unremarkable MRI examination of the cervical spine.; ; Radiology Order: CT Head without contrast Test: CT Head without contrast REASON FOR EXAMINATION: headaches,blurred vision,backpain (in MRI now); ; CT of the head; Clinical history: Headache.; Comparison: MRI, 05/20/2016.; Technique: Multiple axial CT images were obtained through the head without administration of contrast; .; Findings: The ventricles and sulci are symmetric bilaterally. There is no evidence of acute hemorrhag; e or infarct. There is no midline shift, mass effect, or extra-axial fluid collection. The osseous st; ructures are unremarkable. The visualized paranasal sinuses and mastoid air cells are clear.; Impression: Negative study.; ; Outcome: 05/21 21:46 Discharge ordered by Provider. arnold 22:59 Decision to Hospitalize by Provider. arnold 05/22 02:10 CT Study completed. MRI Study completed. Property :Personal belongings accompany Pt. tm5 02:10 Discharge Assessment: Patient awake, alert and oriented x 3. No cognitive and/or tm5 functional deficits noted. Patient verbalized understanding of disposition instructions. patient administered narcotics - yes. Patient was admitted to the hospital or transferred to another facility. 02:10 The following High Risk Discharge criteria are identified: None. Condition: good tm5 Condition: stable Condition: improved. 02:58 Patient left the ED. tm5 Signatures: Dispatcher [employer] EDMS Fifi Mock, Quarry Manager Unit lbd Abbie Cutler, Robert Alexandra, WOODWORKING SHOP LABORER WOODWORKING SHOP LABORER Jayashree Alamo, ADRIAN SENIOR ENGINEERING SPECIALIST Li Jernigan, RN RN mk4 Rolanda Garcia Tonya,RN RN tm5 Corrections: (The following items were deleted from the chart) 05/21 22:46 22:43 General: pt still with dry heaves & "stabbing" headache. tm5 tm5 23:22 23:20 morphine 2 mg IVP in right hand tm5 tm5 05/22 01:13 05/21 23:56 BP 188 / 56; Pulse 70bpm; Resp 18bpm; Pulse Ox 99% RA; Pain 05/31; tm5 tm5 Chart Complete MTDD
--- NOTE | 2016-05-24 03:59 | EDDOCDS ---
Physician Documentation [facility] Name: Irina Vincent Age: 20 yrs Sex: Female : 1995 Arrival Date: 05/21/2016 Time: 18:46 Bed 14 Private MD: Enriqueta Ramirez J. Disposition: 05/21/16 22:59 Hospitalization ordered by Enriqueta Ramirez for Inpatient Admission. Preliminary diagnosis is Headache. - Bed requested for 4 [place]. - Status is Inpatient Admission. tm5 - Condition is Stable. - Problem is an ongoing problem. - Symptoms have worsened. Historical: - Allergies: no known allergies; - Home Meds: 1. diamox every 4 hours 2. Excedrin Migraine 250-250-65 mg Oral tab as needed 3. monocycline was told to stop taking - PMHx: Migraine Headaches; - PSHx: none; - Social history: Smoking status: Patient states was never smoker of tobacco. No barriers to communication noted, The patient speaks fluent Hungarian. - Family history: Not pertinent. - : The pt / caregiver states he / she is not on anticoagulants. Home medication list is obtained from the patient. - Exposure Risk Screening:: None identified. Vital Signs: 05/21 21:06 BP 132 / 68; Pulse 74; Resp 18; Pulse Ox 99% on R/A; Pain 9/10; tm5 21:57 BP 127 / 58; Pulse 63; Resp 18; Temp 95.8(O); Pulse Ox 100% on R/A; Pain 6/10; annie 23:20 BP 122 / 62; Pulse 74; Resp 18; Pulse Ox 99% on R/A; Pain 9/10; tm5 23:56 BP 128 / 56; Pulse 70; Resp 18; Pulse Ox 99% on R/A; Pain 2/10; tm5 05/22 02:11 BP 116 / 72; Pulse 74; Resp 18; Temp 98.3(O); Pulse Ox 100% on R/A; Pain 2/10; tm5 MDM: 05/21 18:52 MRI Screening Tool - Place on chart, inform RN ordered. ke 18:52 LORazepam 1 mg IVP once; prior to mri ordered. ke 18:54 -MRI-Spine, Lumbar without contrast Ordered. EDMS 18:54 -MRI-Spine,Thoracic without contrast Ordered. EDMS 19:08 MRI Screening Tool - Place on chart, inform RN complete. mk4 19:13 MRI Spine,Cervical without con Ordered. EDMS 19:17 CT Head without contrast Ordered. EDMS 19:54 Financial registration complete. gjb 20:20 [place] [place] was [place] into [employer] and attached to record. gjb 20:59 Metoclopramide 10 mg PO once ordered. ke 20:59 LORazepam 1 mg PO once ordered. ke 20:59 Acetaminophen Tablet 650 mg PO once ordered. ke 21:00 REGULAR+DIET ordered. EDMS 22:00 acetaZOLAMIDE 250 mg PO once ordered. ke 22:26 Ondansetron ODT Oral Disintegrating Tablet 8 mg PO once ordered. ke 23:08 Admission Orders was scanned into [employer] and attached to record. annie 23:21 morphine 2 mg IVP once ordered. tm5 23:21 Ondansetron 4 mg IVP once ordered. tm5 02 02:27 HYDROcodone-acetaminophen 5 mg-325 mg 1 tabs PO once ordered. tm5 02:35 Admission Orders was scanned into [employer] and attached to record. annie 02:56 REGULAR DIET ordered. EDMS 12:26 T-Sheet-- Draft Copy was scanned into [employer] and attached to record. gb Administered Medications: 05/21 20:58 Not Given (not present): LORazepam 1 mg IVP once; prior to mri ke 21:06 Drug: Metoclopramide 10 mg [metoclopramide 10 mg tablet (1 tabs)] Route: PO; tm5 21:35 Follow up: Response: Nausea is resolved; No Adverse Reaction tm5 21:06 Drug: LORazepam 1 mg [lorazepam 1 mg tablet (1 tabs)] Route: PO; tm5 21:35 Follow up: Response: Anxiety is improved; No Adverse Reaction tm5 21:06 Drug: Acetaminophen 650 mg [acetaminophen 325 mg tablet (2 tabs)] Route: PO; tm5 21:35 Follow up: Response: No Adverse Reaction; Pain is decreased tm5 22:32 Drug: Ondansetron ODT 8 mg [ondansetron 4 mg disintegrating tablet (2 tabs)] Route: PO; tm5 23:20 Follow up: Response: No Adverse Reaction; No significant change. tm5 22:50 Drug: acetaZOLAMIDE 250 mg [acetazolamide 250 mg tablet (1 tabs)] Route: PO; tm5 23:19 Follow up: Response: No Adverse Reaction tm5 23:20 Drug: morphine 2 mg [morphine 2 mg/mL intravenous cartridge (1 mL)] Route: IVP; Site: tm5 left hand; 23:57 Follow up: Response: No Adverse Reaction; Pain is decreased tm5 23:20 Drug: Ondansetron 4 mg [ondansetron HCl 2 mg/mL intravenous solution (2 mL)] Route: tm5 IVP; Site: left hand; 23:57 Follow up: Response: Nausea is resolved; No Adverse Reaction tm5 05/22 02:29 Drug: HYDROcodone-acetaminophen 1 tabs [hydrocodone 5 mg-acetaminophen 325 mg tablet (1 tm5 tabs)] Route: PO; Signatures: Dispatcher [employer] EDMS Abbie Cutler, Reg Reg gb Robert Walls, PRESIDENT/GM PRODUCTION & LIVE EXPERIENCES PRESIDENT/[employer] LIVE EXPERIENCES ke Jayashree Crawford, COMMUNITY HEALTH REPRESENTATIVE COMMUNITY HEALTH REPRESENTATIVE annie Renetta Mcneill RN RN [id number] Li Copeland RN RN mk4 Rolanda Garcia Tonya,RN RN tm5 The chart was reviewed and I authenticate all verbal orders and agree with the evaluation and treatment provided.Corrections: (The following items were deleted from the chart) 05/21 20:04 19:50 MRI-Spine, Cervical without con+MR ordered. EDMS EDMS 20:58 18:52 IV Saline Lock ordered. arnold barrett 21:01 18:54 COMPLETE BLOOD COUNT+LAB ordered. EDMS EDMS 21:01 18:54 BASIC METABOLIC PROFILE+LAB ordered. EDME EDMS Attachments: 20:20 [place] [place] gjb 23:08 Admission Orders annie 05/22 02:35 Admission Orders annie 12:26 T-Sheet-- Draft Copy gb Chart Complete MTDD
--- NOTE | 2016-05-24 03:59 | EDDOCDS ---
Physician Documentation [facility] Name: Irina Vincent Age: 20 yrs Sex: Female : 1995 Arrival Date: 05/21/2016 Time: 18:46 Bed 14 Private MD: Enriqueta Ramirez J. Disposition: 05/21/16 22:59 Hospitalization ordered by Enriqueta Ramirez for Inpatient Admission. Preliminary diagnosis is Headache. - Bed requested for 4 [place]. - Status is Inpatient Admission. tm5 - Condition is Stable. - Problem is an ongoing problem. - Symptoms have worsened. Historical: - Allergies: no known allergies; - Home Meds: 1. diamox every 4 hours 2. Excedrin Migraine 250-250-65 mg Oral tab as needed 3. monocycline was told to stop taking - PMHx: Migraine Headaches; - PSHx: none; - Social history: Smoking status: Patient states was never smoker of tobacco. No barriers to communication noted, The patient speaks fluent Hungarian. - Family history: Not pertinent. - : The pt / caregiver states he / she is not on anticoagulants. Home medication list is obtained from the patient. - Exposure Risk Screening:: None identified. Vital Signs: 05/21 21:06 BP 132 / 68; Pulse 74; Resp 18; Pulse Ox 99% on R/A; Pain 9/10; tm5 21:57 BP 127 / 58; Pulse 63; Resp 18; Temp 95.8(O); Pulse Ox 100% on R/A; Pain 6/10; annie 23:20 BP 122 / 62; Pulse 74; Resp 18; Pulse Ox 99% on R/A; Pain 9/10; tm5 23:56 BP 128 / 56; Pulse 70; Resp 18; Pulse Ox 99% on R/A; Pain 2/10; tm5 05/22 02:11 BP 116 / 72; Pulse 74; Resp 18; Temp 98.3(O); Pulse Ox 100% on R/A; Pain 2/10; tm5 MDM: 05/21 18:52 MRI Screening Tool - Place on chart, inform RN ordered. ke 18:52 LORazepam 1 mg IVP once; prior to mri ordered. ke 18:54 -MRI-Spine, Lumbar without contrast Ordered. EDMS 18:54 -MRI-Spine,Thoracic without contrast Ordered. EDMS 19:08 MRI Screening Tool - Place on chart, inform RN complete. mk4 19:13 MRI Spine,Cervical without con Ordered. EDMS 19:17 CT Head without contrast Ordered. EDMS 19:54 Financial registration complete. gjb 20:20 [facility] [place] Agreement was scanned into [employer] and attached to record. gjb 20:59 Metoclopramide 10 mg PO once ordered. ke 20:59 LORazepam 1 mg PO once ordered. ke 20:59 Acetaminophen Tablet 650 mg PO once ordered. ke 21:00 REGULAR+DIET ordered. EDMS 22:00 acetaZOLAMIDE 250 mg PO once ordered. ke 22:26 Ondansetron ODT Oral Disintegrating Tablet 8 mg PO once ordered. ke 23:08 Admission Orders was scanned into [employer] and attached to record. annie 23:21 morphine 2 mg IVP once ordered. tm5 23:21 Ondansetron 4 mg IVP once ordered. tm5 02 02:27 HYDROcodone-acetaminophen 5 mg-325 mg 1 tabs PO once ordered. tm5 02:35 Admission Orders was scanned into [employer] and attached to record. annie 02:56 REGULAR DIET ordered. EDMS 12:26 T-Sheet-- Draft Copy was scanned into [employer] and attached to record. gb Administered Medications: 05/21 20:58 Not Given (not present): LORazepam 1 mg IVP once; prior to mri ke 21:06 Drug: Metoclopramide 10 mg [metoclopramide 10 mg tablet (1 tabs)] Route: PO; tm5 21:35 Follow up: Response: Nausea is resolved; No Adverse Reaction tm5 21:06 Drug: LORazepam 1 mg [lorazepam 1 mg tablet (1 tabs)] Route: PO; tm5 21:35 Follow up: Response: Anxiety is improved; No Adverse Reaction tm5 21:06 Drug: Acetaminophen 650 mg [acetaminophen 325 mg tablet (2 tabs)] Route: PO; tm5 21:35 Follow up: Response: No Adverse Reaction; Pain is decreased tm5 22:32 Drug: Ondansetron ODT 8 mg [ondansetron 4 mg disintegrating tablet (2 tabs)] Route: PO; tm5 23:20 Follow up: Response: No Adverse Reaction; No significant change. tm5 22:50 Drug: acetaZOLAMIDE 250 mg [acetazolamide 250 mg tablet (1 tabs)] Route: PO; tm5 23:19 Follow up: Response: No Adverse Reaction tm5 23:20 Drug: morphine 2 mg [morphine 2 mg/mL intravenous cartridge (1 mL)] Route: IVP; Site: tm5 left hand; 23:57 Follow up: Response: No Adverse Reaction; Pain is decreased tm5 23:20 Drug: Ondansetron 4 mg [ondansetron HCl 2 mg/mL intravenous solution (2 mL)] Route: tm5 IVP; Site: left hand; 23:57 Follow up: Response: Nausea is resolved; No Adverse Reaction tm5 05/22 02:29 Drug: HYDROcodone-acetaminophen 1 tabs [hydrocodone 5 mg-acetaminophen 325 mg tablet (1 tm5 tabs)] Route: PO; Signatures: Dispatcher [employer] EDMS Abbie Cutler, Reg Reg gb Robert Walls, MAINFRAME SYSTEMS ENGINEER MAINFRAME SYSTEMS ENGINEER ke Jayashree Crawford, RAPID OUTSOLE STITCHER RAPID OUTSOLE STITCHER annie Renetta Mcneill RN RN sls1 Li Copeland RN RN mk4 Rolanda Garcia Tonya,RN RN tm5 The chart was reviewed and I authenticate all verbal orders and agree with the evaluation and treatment provided.Corrections: (The following items were deleted from the chart) 05/21 20:04 19:50 MRI-Spine, Cervical without con+MR ordered. EDMS EDMS 20:58 18:52 IV Saline Lock ordered. arnold barrett 21:01 18:54 COMPLETE BLOOD COUNT+LAB ordered. EDMS EDMS 21:01 18:54 BASIC METABOLIC PROFILE+LAB ordered. EDMO EDMS Attachments: 20:20 [facility] Payment Agreement gjb 23:08 Admission Orders annie 05/22 02:35 Admission Orders annie 12:26 T-Sheet-- Draft Copy gb Chart Complete MTDD
[2016-05-27 14:14] LABS: PROTEIN C ANTIGEN 104 % (60-150); PROTEIN S ANTIGEN FREE 73 % (57-157); PROTEIN S ANTIGEN TOTAL 101 % (60-150)
[2016-05-30 14:12] LABS: SJOGREN'S ANTI SS-A <0.2 AI (0.0-0.9); SJOGREN'S ANTI SS-B <0.2 AI (0.0-0.9)
== END 2016-05-23 20:49 | disposition home or self-care (01) ==
LOC: M ED 18:46 → M ED INP 22:50 → M MSPAV 05-22 02:59
PROVIDERS: ADMIT Neurological Surgery; ATTEND Neurological Surgery
DX: R51 Headache (principal); R11.2 Nausea with vomiting, unspecified; H47.10 Unspecified papilledema; H53.123 Transient visual loss, bilateral; H53.2 Diplopia; L70.9 Acne, unspecified; F32.9 Major depressive disorder, single episode, unspecified; E66.9 Obesity, unspecified; Z79.899 Other long term (current) drug therapy; Z79.3 Long term (current) use of hormonal contraceptives; Z23 Encounter for immunization
CPT/HCPCS: 36415; 70450; 72141; 72146; 72148; 80053; 81001; 81240; 81241; 83090; 83525; 83735; 84100; 84681; 85025; 85300; 85301; 85302; 85305; 85306; 85610; 85652; 85730; 86038; 86140; 86147; 86235; 86256; 90471; 90686; 96374; 96375; 96376; 99284; J1120; J2405; J2765

== ENCOUNTER → 2016-05-21 | Outpatient (CLI) | payer OTHER ==
[~2016-05-21] MED LIST: ACET25TA PO; DULO1CAP2 PO; EXCETAB80 PO; LIDOCAINE 1% MDV 20ML VIAL As Ordered ONE; MULT1CHW26 PO; VITA-197 PO; VITAMIN B12 GUMMY PO
--- NOTE | 2016-05-21 19:37 | REP ---
FLUOROSCOPIC GUIDANCE FOR LUMBAR PUNCTURE: The procedure was performed under the personal supervision of Dr. Porras. The risks and benefits of the procedure were explained to the patient and informed consent was obtained. The L4-5 interspace was localized using fluoroscopic guidance. The skin was prepped and draped in a sterile fashion. 1% Lidocaine was used as a local anesthetic. Using fluoroscopic guidance a #22-gauge spinal needle was inserted and then advanced into the thecal sac however no fluid could be withdrawn. Multiple attempts were tried. The needle was then removed. The L3-4 interspace was then localized. Using fluoroscopic guidance a #22-gauge spinal needle was inserted and then advanced into the thecal sac, 10 mL of red-ringed spinal fluid was withdrawn and sent to the lab. The patient tolerated the procedure well and there were no immediate complications. After the appropriate amount of monitored convalescence the patient was discharged from the department. 31 seconds of fluoroscopic time was utilized for this procedure. Reviewed by GEORGINA Hameed 05/22/2016 02:13 PEdited and Signed by Gwyn Porras MD 05/22/2016 02:26 P
[2016-05-21 19:43] LABS: GLUCOSE CSF 59 MG/DL (40-75)
[2016-05-21 20:18] LABS: APPEARANCE, CSF CLOUDY (CLEAR); COLOR, CSF RED (COLORLESS); CSF TUBE# CELL CNT TUBE 2
[2016-05-21 20:19] LABS: DILUTION RBC CSF 100 (0-10); DILUTION WBC CSF 10 (0-10); RBC CALC CSF 33889 /mm3 (0-0); RBC COUNTED CSF 305 /mm3 (0-0); WBC COUNTED CSF 21 /uL (0-10)
[2016-05-21 20:20] LABS: CSF DIFF IF INDICATED? YES (NO)
[2016-05-21 21:13] LABS: CC CSF DIFF EXAM CYTOCENTRIFUGE
== END ==
LOC: M RADPRO 16:31
PROVIDERS: ATTEND Neurological Surgery
DX: H53.123 Transient visual loss, bilateral (principal); R20.2 Paresthesia of skin; G93.2 Benign intracranial hypertension

== ENCOUNTER 2016-05-24 10:59 | Emergency (ER) | payer OTHER ==
[~2016-05-24 10:59] MED LIST changes: -LIDOCAINE 1% MDV 20ML VIAL As Ordered ONE
[2016-05-24] MEDS ORDERED: METOCLOPRAMIDE INJ 10MG/2ML VIAL (J2765) As Ordered ONE (12:05)
[2016-05-24] MEDS ORDERED: MORPHINE 4 MG/ML 1ML SYRINGE As Ordered ONE (12:05)
[2016-05-24] MEDS ORDERED: diphenhydrAMINE INJ 50MG/ML VIAL (J1200) As Ordered ONE (12:05)
[2016-05-24 14:45] VITALS: BP 128/70
--- NOTE | 2016-05-24 15:28 | EDDOCDS ---
Nurse's Notes [facility] Name: Irina Vincent Age: 20 yrs Sex: Female : 1995 Arrival Date: 05/24/2016 Time: 10:59 Bed I9 Private MD: Diagnosis: Headache-post LP Presentation: 05/24 11:02 Presenting complaint: Mother states: here for blood patch. had 2 lumbar punctures srm earlier in the week for double vision and papillo edema and head ache. Adult Sepsis Screening: The patient does not have new or worsening altered mentation. Patient's respiratory rate is less than 22. Systolic blood pressure is greater than 100. Patient has a qSOFA score of 0- Negative Sepsis Screen. Suicide/Homicide risk assessment- the patient denies having any suicidal and/or homicidal ideations and does not present with any other emotional, behavioral or mental health complaints. 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 Transition of care: patient was not received from another setting of care. 11:02 Acuity: DANIELLE Level 3 [facility] 11:02 Method Of Arrival: Walkin/Carried/Asstd [facility] Triage Assessment: 11:05 General: Appears in no apparent distress, Behavior is appropriate for age, cooperative, srm pt has sunglasses on lying on stretcher. requesting morphine for headache. Pain: Pain currently is 9 out of 10 on a pain scale. HIV screening NA for this visit Offered previously. The patient is triaged at the bedside. See Assessment in Nurses Notes section of ED record. Neurological: Level of Consciousness is awake, alert, Oriented to person, place, time, Moves all extremities. Full function Speech is normal, Facial symmetry appears normal, Pupils are PERRLA. Cardiovascular: No deficits noted. Respiratory: No deficits noted. GI: No deficits noted. 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 diamox 500mg twice a day 2. Cymbalta 60 mg Oral cpDR 1 cap once daily hasnt taken in a few days - PMHx: Migraine Headaches; papilledema; Pseudo Tumor Cerebri; - PSHx: none; - Social history: Smoking status: Patient states was never smoker of tobacco. No barriers to communication noted, The patient speaks fluent Divehi, Speaks appropriately for age. - Family history: Not pertinent. - : The pt / caregiver states he / she is not on anticoagulants. Home medication list is obtained from the patient, family members. - Exposure Risk Screening:: None identified. Screenin:07 Screening information is obtained from the patient, the parent. Fall risk: No risks srm identified. Assistance ADL's: requires no assistance with activities of daily living. Abuse/DV Screen: The patient / caregiver reports he/she is: not in a situation that causes fear, pain or injury. Nutritional screening: No deficits noted. Advance Directives: There is no active DNR order. Advance Directives:. home support is adequate. Assessment: 11:07 General: see triage note. srm 12:18 General: Appears in no apparent distress, Behavior is appropriate for age, cooperative. srm General: pt wearing sunglasses and placing once pack on forehead. Pain: Pain currently is 9 out of 10 on a pain scale. Neurological: Level of Consciousness is awake, alert, Oriented to person, place, time, Moves all extremities. Full function Speech is normal, Facial symmetry appears normal. Respiratory: No deficits noted. GI: No deficits noted. 12:30 General: water given to pt per dr hurley after requests for something to eat and drink srm by pt. . 12:58 General: pt resting on stretcher color pink/ states headache down tp 3/10 and denies srm double or blurred [id number]. 13:00 General: pt to RR FOR BLOOD PATCH. srm 14:57 General: Appears in no apparent distress, Behavior is appropriate for age, cooperative, srm returned from RR. states headache much better, throbbing a little. 3/10. 15:09 General: Appears in no apparent distress, Behavior is appropriate for age, cooperative. srm Pain: Pain currently is 3 out of 10 on a pain scale. Neurological: No deficits noted. Level of Consciousness is awake, alert, Oriented to person, place, time, Laboratory Phlebotomist are equal bilaterally Moves all extremities. Full function Gait is steady, Speech is normal, Facial symmetry appears normal. Derm: No deficits noted. Vital Signs: 11:05 BP 144 / 77; Pulse 65; Resp 18; Temp 98.9; Pulse Ox 99% ; Weight 86.18 kg; Height 5 ft. srm 4 in. (162.56 cm); 12:57 BP 140 / 78; Pulse 86; Resp 18; Temp 97.6(O); Pulse Ox 99% ; Pain 3/10; srm 12:58 Pain 3/10; srm 15:00 BP 126 / 66; Pulse 62; Resp 18; Temp 98.7(T); Pulse Ox 99% on R/A; Pain 4/10; dem1 11:05 Body Mass Index 32.61 (86.18 kg, 162.56 cm) srm Vitals: 11:05 Log In Time N/A - ambulance arrival. srm ED Course: 11:01 Patient visited by Bry Dubose. mm15 11:01 Patient name changed from Irina\S\\S\[place]\S\ to Irina\S\ \S\[place]. mm15 11:01 Patient moved to Waiting mm15 11:03 Triage Initiated srm 11:06 Patient moved to I9 / jr 11:07 The patient / caregiver is instructed regarding the plan of care and ED course. srm Accompanied by Family Member, Patient has correct armband on for positive identification. 11:25 Missed attempts: 20 gauge in right hand. srm 11:30 Rubina Morris MD is Attending Physician. sd1 11:30 Patient visited by Rubina Morris MD. sd1 12:03 Patient visited by Irina Zamora RN. ead 12:03 Inserted saline lock: 22 gauge in right The patient tolerated the procedure well. RIGHT ead WRIST. 12:19 Patient visited by Komal Monahan, ELGIN. srm 12:31 Patient visited by Komal Monahan RN. srm 12:58 Patient name changed from Irina\S\ \S\[place]\S\ to Irina\S\Sintia\S\Melisa. EDMS 13:00 [facility] Payment Agreement was scanned into [employer] and attached to record. lg 13:03 Enriqueta Tovar is Referral Physician. sd1 15:00 Patient visited by Fei Connelly. dem1 15:09 Discontinued lock intact, bleeding controlled, pressure dressing applied, No srm redness/swelling at site. No procedures done that require assistance. Administered Medications: 12:12 Drug: NS 0.9% 1000 ml [sodium chloride 0.9 % intravenous solution] Route: IV; Rate: srm bolus; Site: left wrist; 12:12 Drug: diphenhydrAMINE 25 mg [diphenhydramine 50 mg/mL injection solution (0.5 mL)] srm Route: IVP; Site: right wrist; 12:58 Follow up: Response: Pain is decreased srm 12:14 Drug: morphine 4 mg [morphine 4 mg/mL intravenous cartridge (1 mL)] Route: IVP; Site: srm right wrist; 12:58 Follow up: Pain 3/10 Adult; Response: Pain is decreased srm 12:16 Drug: Metoclopramide 10 mg [metoclopramide 5 mg/mL injection solution] Route: IV; Rate: srm 40 mg/hr; Infused Over: 15 mins; Site: left wrist; 12:58 Follow up: Response: Nausea is resolved srm Intake: 12:59 IV: 500.00ml (NS); Total: 500.00ml. srm 15:09 IV: 300.00ml (NS); Total: 800.00ml. srm Order Results: There are currently no results for this order. Outcome: 13:04 Discharge ordered by Provider. sd1 15:09 Discharge Assessment: Patient awake, alert and oriented x 3. No cognitive and/or srm functional deficits noted. Patient verbalized understanding of disposition instructions. patient administered narcotics - yes. Pt provided with safe discharge. The following High Risk Discharge criteria are identified: None. Discharged to home ambulatory, with parent. Condition: stable. Discharge instructions given to patient, Instructed on discharge instructions, follow up and referral plans. medication usage, Demonstrated understanding of instructions, medications, prescription sent to pharmacy by brian villafuerte from dr tovar's office [facility] Pt was receptive of discharge instructions/ teaching. Prescriptions given X 1. No special radiology studies were completed. Property sent home with patient. 15:27 Patient left the ED. srm Signatures: Dispatcher [employer] EDMS Rubina Morris MD MD sd1 Komal Monahan, RN RN Kevin Santana Reg Reg lg Raymond, Jessica, RN RN jjr Mack, Demeishia dem1 Bry Dubose mm15 Irina Zamora RN RN ead MTDD
--- NOTE | 2016-05-24 15:28 | EDDOCDS ---
Physician Documentation [facility] Name: Irina Vincent Age: 20 yrs Sex: Female : 1995 Arrival Date: 05/24/2016 Time: 10:59 Bed I9 Private MD: Disposition: 05/24/16 13:04 Discharged to Home/Self Care. Impression: Headache - post LP. - Condition is Stable. - Medication Reconciliation, Local Pharmacy Hours form. - Follow up: Enriqueta Ramirez; When: to PACU. - Problem is new. - Symptoms are unchanged. Historical: - Allergies: no known allergies; - Home Meds: 1. diamox 500mg twice a day 2. Cymbalta 60 mg Oral cpDR 1 cap once daily hasnt taken in a few days - PMHx: Migraine Headaches; papilledema; Pseudo Tumor Cerebri; - PSHx: none; - Social history: Smoking status: Patient states was never smoker of tobacco. No barriers to communication noted, The patient speaks fluent Martiniquais, Speaks appropriately for age. - Family history: Not pertinent. - : The pt / caregiver states he / she is not on anticoagulants. Home medication list is obtained from the patient, family members. - Exposure Risk Screening:: None identified. 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 4 in. (162.56 cm); 12:57 BP 140 / 78; Pulse 86; Resp 18; Temp 97.6(O); Pulse Ox 99% ; Pain 3/10; srm 12:58 Pain 3/10; srm 15:00 BP 126 / 66; Pulse 62; Resp 18; Temp 98.7(T); Pulse Ox 99% on R/A; Pain 4/10; dem1 11:05 Body Mass Index 32.61 (86.18 kg, 162.56 cm) srm MDM: 11:38 NS 0.9% 1000 ml IV at bolus once ordered. sd1 11:38 Metoclopramide 10 mg IV at 40 mg/hr once over 15 mins ordered. sd1 11:38 diphenhydrAMINE 25 mg IVP once ordered. sd1 11:38 IV Saline Lock ordered. sd1 11:38 morphine 4 mg IVP every 15 minutes; Document pain score/vitals after each dose (Hold if sd1 SBP < 90mmHg) x2 ordered. 12:28 Financial registration complete. lg 13:00 [facility] Payment Agreement was scanned into [employer] and attached to record. lg Administered Medications: 12:12 Drug: NS 0.9% 1000 ml [sodium chloride 0.9 % intravenous solution] Route: IV; Rate: srm bolus; Site: left wrist; 12:12 Drug: diphenhydrAMINE 25 mg [diphenhydramine 50 mg/mL injection solution (0.5 mL)] srm Route: IVP; Site: right wrist; 12:58 Follow up: Response: Pain is decreased srm 12:14 Drug: morphine 4 mg [morphine 4 mg/mL intravenous cartridge (1 mL)] Route: IVP; Site: srm right wrist; 12:58 Follow up: Pain 3/10 Adult; Response: Pain is decreased srm 12:16 Drug: Metoclopramide 10 mg [metoclopramide 5 mg/mL injection solution] Route: IV; Rate: srm 40 mg/hr; Infused Over: 15 mins; Site: left wrist; 12:58 Follow up: Response: Nausea is resolved srm Signatures: Rubina Morris MD MD sd1 Komal Monahan RN RN srm Kevin Hewitt, Reg Reg lg Berenice Lee RN RN hs1 The chart was reviewed and I authenticate all verbal orders and agree with the evaluation and treatment provided.Attachments: 13:00 [facility] Payment Agreement lg MTDD
--- NOTE | 2016-05-26 16:29 | EDDOCDS ---
Physician Documentation [facility] Name: Irina Vincent Age: 20 yrs Sex: Female : 1995 Arrival Date: 05/24/2016 Time: 10:59 Bed I9 Private MD: Disposition: 05/24/16 13:04 Discharged to Home/Self Care. Impression: Headache - post LP. - Condition is Stable. - Medication Reconciliation, Local Pharmacy Hours form. - Follow up: Enriqueta Ramirez; When: to PACU. - Problem is new. - Symptoms are unchanged. Historical: - Allergies: no known allergies; - Home Meds: 1. diamox 500mg twice a day 2. Cymbalta 60 mg Oral cpDR 1 cap once daily hasnt taken in a few days - PMHx: Migraine Headaches; papilledema; Pseudo Tumor Cerebri; - PSHx: none; - Social history: Smoking status: Patient states was never smoker of tobacco. No barriers to communication noted, The patient speaks fluent Uzbek, Speaks appropriately for age. - Family history: Not pertinent. - : The pt / caregiver states he / she is not on anticoagulants. Home medication list is obtained from the patient, family members. - Exposure Risk Screening:: None identified. RN MEDICARE: 05/24 11:05 LMP 05/20/2016 [facility] Vital Signs: 11:05 BP 144 / 77; Pulse 65; Resp 18; Temp 98.9; Pulse Ox 99% ; Weight 86.18 kg / 189.99 lbs; srm Height 5 ft. 4 in. (162.56 cm); 12:57 BP 140 / 78; Pulse 86; Resp 18; Temp 97.6(O); Pulse Ox 99% ; Pain 3/10; srm 12:58 Pain 3/10; srm 15:00 BP 126 / 66; Pulse 62; Resp 18; Temp 98.7(T); Pulse Ox 99% on R/A; Pain 4/10; dem1 11:05 Body Mass Index 32.61 (86.18 kg, 162.56 cm) srm MDM: 11:38 NS 0.9% 1000 ml IV at bolus once ordered. sd1 11:38 Metoclopramide 10 mg IV at 40 mg/hr once over 15 mins ordered. sd1 11:38 diphenhydrAMINE 25 mg IVP once ordered. sd1 11:38 IV Saline Lock ordered. sd1 11:38 morphine 4 mg IVP every 15 minutes; Document pain score/vitals after each dose (Hold if sd1 SBP < 90mmHg) x2 ordered. 12:28 Financial registration complete. lg 13:00 [facility] Payment Agreement was scanned into [employer] and attached to record. lg 17:35 T-Sheet-- Draft Copy was scanned into [employer] and attached to record. klr 05/25 16:58 Consents was scanned into [employer] and attached to record. kf3 Administered Medications: 05/24 12:12 Drug: NS 0.9% 1000 ml [sodium chloride 0.9 % intravenous solution] Route: IV; Rate: srm bolus; Site: left wrist; 12:12 Drug: diphenhydrAMINE 25 mg [diphenhydramine 50 mg/mL injection solution (0.5 mL)] srm Route: IVP; Site: right wrist; 12:58 Follow up: Response: Pain is decreased srm 12:14 Drug: morphine 4 mg [morphine 4 mg/mL intravenous cartridge (1 mL)] Route: IVP; Site: srm right wrist; 12:58 Follow up: Pain 3/10 Adult; Response: Pain is decreased srm 12:16 Drug: Metoclopramide 10 mg [metoclopramide 5 mg/mL injection solution] Route: IV; Rate: srm 40 mg/hr; Infused Over: 15 mins; Site: left wrist; 12:58 Follow up: Response: Nausea is resolved srm Signatures: Rubina Morris MD MD sd1 Komal Monahan RN RN srm Kevin Hewitt, Reg Reg lg Yassine Guzman, Reg Reg kf3 Berenice Lee RN RN Destiney Thomas klr The chart was reviewed and I authenticate all verbal orders and agree with the evaluation and treatment provided.Attachments: 13:00 [facility] Payment Agreement lg 17:35 T-Sheet-- Draft Copy klr Chart Complete MTDD
--- NOTE | 2016-05-26 16:29 | EDDOCDS ---
Physician Documentation [facility] Name: Irina Vincent Age: 20 yrs Sex: Female : 1995 Arrival Date: 05/24/2016 Time: 10:59 Bed I9 Private MD: Disposition: 05/24/16 13:04 Discharged to Home/Self Care. Impression: Headache - post LP. - Condition is Stable. - Medication Reconciliation, Local Pharmacy Hours form. - Follow up: Enriqueta Ramirez; When: to PACU. - Problem is new. - Symptoms are unchanged. Historical: - Allergies: no known allergies; - Home Meds: 1. diamox 500mg twice a day 2. Cymbalta 60 mg Oral cpDR 1 cap once daily hasnt taken in a few days - PMHx: Migraine Headaches; papilledema; Pseudo Tumor Cerebri; - PSHx: none; - Social history: Smoking status: Patient states was never smoker of tobacco. No barriers to communication noted, The patient speaks fluent Marshallese, Speaks appropriately for age. - Family history: Not pertinent. - : The pt / caregiver states he / she is not on anticoagulants. Home medication list is obtained from the patient, family members. - Exposure Risk Screening:: None identified. 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 4 in. (162.56 cm); 12:57 BP 140 / 78; Pulse 86; Resp 18; Temp 97.6(O); Pulse Ox 99% ; Pain 3/10; srm 12:58 Pain 3/10; srm 15:00 BP 126 / 66; Pulse 62; Resp 18; Temp 98.7(T); Pulse Ox 99% on R/A; Pain 4/10; dem1 11:05 Body Mass Index 32.61 (86.18 kg, 162.56 cm) srm MDM: 11:38 NS 0.9% 1000 ml IV at bolus once ordered. sd1 11:38 Metoclopramide 10 mg IV at 40 mg/hr once over 15 mins ordered. sd1 11:38 diphenhydrAMINE 25 mg IVP once ordered. sd1 11:38 IV Saline Lock ordered. sd1 11:38 morphine 4 mg IVP every 15 minutes; Document pain score/vitals after each dose (Hold if sd1 SBP < 90mmHg) x2 ordered. 12:28 Financial registration complete. lg 13:00 [facility] Payment Agreement was scanned into [employer] and attached to record. lg 17:35 T-Sheet-- Draft Copy was scanned into [employer] and attached to record. klr 05/25 16:58 Consents was scanned into [employer] and attached to record. kf3 Administered Medications: 05/24 12:12 Drug: NS 0.9% 1000 ml [sodium chloride 0.9 % intravenous solution] Route: IV; Rate: srm bolus; Site: left wrist; 12:12 Drug: diphenhydrAMINE 25 mg [diphenhydramine 50 mg/mL injection solution (0.5 mL)] srm Route: IVP; Site: right wrist; 12:58 Follow up: Response: Pain is decreased srm 12:14 Drug: morphine 4 mg [morphine 4 mg/mL intravenous cartridge (1 mL)] Route: IVP; Site: srm right wrist; 12:58 Follow up: Pain 3/10 Adult; Response: Pain is decreased srm 12:16 Drug: Metoclopramide 10 mg [metoclopramide 5 mg/mL injection solution] Route: IV; Rate: srm 40 mg/hr; Infused Over: 15 mins; Site: left wrist; 12:58 Follow up: Response: Nausea is resolved srm Signatures: Rubina Morris MD MD sd1 Komal Monahan RN RN srm Kevin Hewitt, Reg Reg lg Yassine Guzman, Reg Reg kf3 Berenice Lee RN RN Destiney Thomas klr The chart was reviewed and I authenticate all verbal orders and agree with the evaluation and treatment provided.Attachments: 13:00 [facility] Payment Agreement lg 17:35 T-Sheet-- Draft Copy klr Chart Complete MTDD
--- NOTE | 2016-05-26 16:29 | EDDOCDS ---
Nurse's Notes [facility] Name: Irina Vincent Age: 20 yrs Sex: Female : 1995 Arrival Date: 05/24/2016 Time: 10:59 Bed I9 Private MD: Diagnosis: Headache-post LP Presentation: 05/24 11:02 Presenting complaint: Mother states: here for blood patch. had 2 lumbar punctures srm earlier in the week for double vision and papillo edema and head ache. Adult Sepsis Screening: The patient does not have new or worsening altered mentation. Patient's respiratory rate is less than 22. Systolic blood pressure is greater than 100. Patient has a qSOFA score of 0- Negative Sepsis Screen. Suicide/Homicide risk assessment- the patient denies having any suicidal and/or homicidal ideations and does not present with any other emotional, behavioral or mental health complaints. 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 Transition of care: patient was not received from another setting of care. 11:02 Acuity: DANIELLE Level 3 [facility] 11:02 Method Of Arrival: Walkin/Carried/Asstd [facility] Triage Assessment: 11:05 General: Appears in no apparent distress, Behavior is appropriate for age, cooperative, srm pt has sunglasses on lying on stretcher. requesting morphine for headache. Pain: Pain currently is 9 out of 10 on a pain scale. HIV screening NA for this visit Offered previously. The patient is triaged at the bedside. See Assessment in Nurses Notes section of ED record. Neurological: Level of Consciousness is awake, alert, Oriented to person, place, time, Moves all extremities. Full function Speech is normal, Facial symmetry appears normal, Pupils are PERRLA. Cardiovascular: No deficits noted. Respiratory: No deficits noted. GI: No deficits noted. 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 diamox 500mg twice a day 2. Cymbalta 60 mg Oral cpDR 1 cap once daily hasnt taken in a few days - PMHx: Migraine Headaches; papilledema; Pseudo Tumor Cerebri; - PSHx: none; - Social history: Smoking status: Patient states was never smoker of tobacco. No barriers to communication noted, The patient speaks fluent Nepali, Speaks appropriately for age. - Family history: Not pertinent. - : The pt / caregiver states he / she is not on anticoagulants. Home medication list is obtained from the patient, family members. - Exposure Risk Screening:: None identified. Screenin:07 Screening information is obtained from the patient, the parent. Fall risk: No risks srm identified. Assistance ADL's: requires no assistance with activities of daily living. Abuse/DV Screen: The patient / caregiver reports he/she is: not in a situation that causes fear, pain or injury. Nutritional screening: No deficits noted. Advance Directives: There is no active DNR order. Advance Directives:. home support is adequate. Assessment: 11:07 General: see triage note. srm 12:18 General: Appears in no apparent distress, Behavior is appropriate for age, cooperative. srm General: pt wearing sunglasses and placing once pack on forehead. Pain: Pain currently is 9 out of 10 on a pain scale. Neurological: Level of Consciousness is awake, alert, Oriented to person, place, time, Moves all extremities. Full function Speech is normal, Facial symmetry appears normal. Respiratory: No deficits noted. GI: No deficits noted. 12:30 General: water given to pt per dr hurley after requests for something to eat and drink srm by pt. . 12:58 General: pt resting on stretcher color pink/ states headache down tp 3/10 and denies srm double or blurred [id number]. 13:00 General: pt to RR FOR BLOOD PATCH. srm 14:57 General: Appears in no apparent distress, Behavior is appropriate for age, cooperative, srm returned from RR. states headache much better, throbbing a little. 3/10. 15:09 General: Appears in no apparent distress, Behavior is appropriate for age, cooperative. srm Pain: Pain currently is 3 out of 10 on a pain scale. Neurological: No deficits noted. Level of Consciousness is awake, alert, Oriented to person, place, time, Microarray Specialist are equal bilaterally Moves all extremities. Full function Gait is steady, Speech is normal, Facial symmetry appears normal. Derm: No deficits noted. Vital Signs: 11:05 BP 144 / 77; Pulse 65; Resp 18; Temp 98.9; Pulse Ox 99% ; Weight 86.18 kg; Height 5 ft. srm 4 in. (162.56 cm); 12:57 BP 140 / 78; Pulse 86; Resp 18; Temp 97.6(O); Pulse Ox 99% ; Pain 3/10; srm 12:58 Pain 3/10; srm 15:00 BP 126 / 66; Pulse 62; Resp 18; Temp 98.7(T); Pulse Ox 99% on R/A; Pain 4/10; dem1 11:05 Body Mass Index 32.61 (86.18 kg, 162.56 cm) srm Vitals: 11:05 Log In Time N/A - ambulance arrival. srm ED Course: 11:01 Patient visited by Bry Dubose. mm15 11:01 Patient name changed from Irina\S\\S\Kinsley\S\ to Irina\S\ \S\Kinsley. mm15 11:01 Patient moved to Waiting mm15 11:03 Triage Initiated srm 11:06 Patient moved to I9 jjr 11:07 The patient / caregiver is instructed regarding the plan of care and ED course. srm Accompanied by Family Member, Patient has correct armband on for positive identification. 11:25 Missed attempts: 20 gauge in right hand. srm 11:30 Rubina Morris MD is Attending Physician. sd1 11:30 Patient visited by Rubina Morris MD. sd1 12:03 Patient visited by Irina Zamora,ELGIN. ead 12:03 Inserted saline lock: 22 gauge in right The patient tolerated the procedure well. RIGHT ead WRIST. 12:19 Patient visited by Komal Monahan, ELGIN. srm 12:31 Patient visited by Komal Monahan, ELGIN. srm 12:58 Patient name changed from Irina\S\ \S\Kinsley\S\ to Irina\S\Sintia\S\Melisa. EDMS 13:00 [facility] [place] Payment Agreement was scanned into [email or web address] and attached to record. lg 13:03 Enriqueta Tovar is Referral Physician. sd1 15:00 Patient visited by Fei Connelly. dem1 15:09 Discontinued lock intact, bleeding controlled, pressure dressing applied, No srm redness/swelling at site. No procedures done that require assistance. 17:35 T-Sheet-- Draft Copy was scanned into [email or web address] and attached to record. klr 05/25 16:58 Consents was scanned into [email or web address] and attached to record. kf3 Administered Medications: 02 12:12 Drug: NS 0.9% 1000 ml [sodium chloride 0.9 % intravenous solution] Route: IV; Rate: srm bolus; Site: left wrist; 12:12 Drug: diphenhydrAMINE 25 mg [diphenhydramine 50 mg/mL injection solution (0.5 mL)] srm Route: IVP; Site: right wrist; 12:58 Follow up: Response: Pain is decreased srm 12:14 Drug: morphine 4 mg [morphine 4 mg/mL intravenous cartridge (1 mL)] Route: IVP; Site: srm right wrist; 12:58 Follow up: Pain 3/10 Adult; Response: Pain is decreased srm 12:16 Drug: Metoclopramide 10 mg [metoclopramide 5 mg/mL injection solution] Route: IV; Rate: srm 40 mg/hr; Infused Over: 15 mins; Site: left wrist; 12:58 Follow up: Response: Nausea is resolved srm Attachments: 05/25 16:58 Consents kf3 Intake: 02 12:59 IV: 500.00ml (NS); Total: 500.00ml. srm 15:09 IV: 300.00ml (NS); Total: 800.00ml. srm Order Results: There are currently no results for this order. Outcome: 13:04 Discharge ordered by Provider. sd1 15:09 Discharge Assessment: Patient awake, alert and oriented x 3. No cognitive and/or srm functional deficits noted. Patient verbalized understanding of disposition instructions. patient administered narcotics - yes. Pt provided with safe discharge. The following High Risk Discharge criteria are identified: None. Discharged to home ambulatory, with parent. Condition: stable. Discharge instructions given to patient, Instructed on discharge instructions, follow up and referral plans. medication usage, Demonstrated understanding of instructions, medications, prescription sent to pharmacy by brian villafuerte from dr tovar's office for [place] Pt was receptive of discharge instructions/ teaching. Prescriptions given X 1. No special radiology studies were completed. Property sent home with patient. 15:27 Patient left the ED. srm Signatures: Dispatcher [employer] EDMS Rubina Morris MD MD sd1 Komal Monahan RN RN srm Kevin Hewitt, Reg Reg lg Yassine Guzman, Reg Reg kf3 Brionna Snyder, RN RN jjFei Vargas dem1 Bry Dubose mm15 Irina Zamora,RN RN Destinye Dupont Chart Complete MTDD
== END 2016-05-24 15:27 | disposition home or self-care (01) ==
LOC: M ED 10:59
DX: G97.1 Other reaction to spinal and lumbar puncture (principal); G43.909 Migraine, unspecified, not intractable, without status migrainosus; G93.5 Compression of brain; Z79.899 Other long term (current) drug therapy
CPT/HCPCS: 96374; 96375; 99283; J1200; J2765

== ENCOUNTER → 2016-08-23 | Outpatient (CLI) | payer OTHER | LOC: M WUC 17:13 | PROVIDERS: ATTEND Physician Assistant | DX: N91.2 Amenorrhea, unspecified (principal) ==

== ENCOUNTER → 2019-05-11 | Outpatient (REF) | payer OTHER ==
[~2019-05-11] MED LIST changes: +ACET250T2 PO; -ACET25TA PO; -DULO1CAP2 PO; +DULO1CAP5 PO
[2019-05-11 13:55] LABS: APPEARANCE, URINE HAZY (CLEAR); BACTERIA, URINE AUTO NEGATIVE (NEGATIVE); BILIRUBIN, URINE AUTO NEGATIVE (NEGATIVE); BLOOD, URINE BLOOD 1+ (NEGATIVE); COLOR, URINE YELLOW (YELLOW); GLUCOSE, URINE (UA) AUTO NEGATIVE (NEGATIVE); KETONE, URINE AUTO NEGATIVE (NEGATIVE); LEUKOCYTE ESTERASE, URINE AUTO TRACE (NEGATIVE); MUCUS, URINE SMALL (NEGATIVE); NITRITE, URINE AUTO NEGATIVE (NEGATIVE); PROTEIN, URINE AUTO NEGATIVE (NEGATIVE); RBC, URINE AUTO 1 /HPF (0-3); SPECIFIC GRAVITY URINE AUTO 1.019 (1.002-1.035); SQUAMOUS EPITHELIAL CELL UR AU 4 /HPF (0-6); UROBILINOGEN, URINE AUTO 0.2 mg/dL (0.0-2.0); WBC, URINE AUTO 5 /HPF (0-3)
== END ==
LOC: M LAB REF 13:06
PROVIDERS: ATTEND Nurse Practitioner Women's Health
DX: N39.0 Urinary tract infection, site not specified (principal)

== ENCOUNTER → 2019-06-14 | Outpatient (REF) | payer OTHER ==
[2019-06-14 18:34] LABS: APPEARANCE, URINE HAZY (CLEAR); BACTERIA, URINE AUTO NEGATIVE (NEGATIVE); BILIRUBIN, URINE AUTO NEGATIVE (NEGATIVE); BLOOD, URINE BLOOD NEGATIVE (NEGATIVE); CALCIUM OXALATE CRYSTALS MODERATE; COLOR, URINE YELLOW (YELLOW); GLUCOSE, URINE (UA) AUTO NEGATIVE (NEGATIVE); KETONE, URINE AUTO NEGATIVE (NEGATIVE); LEUKOCYTE ESTERASE, URINE AUTO NEGATIVE (NEGATIVE); MUCUS, URINE SMALL (NEGATIVE); NITRITE, URINE AUTO NEGATIVE (NEGATIVE); PROTEIN, URINE AUTO NEGATIVE (NEGATIVE); RBC, URINE AUTO 1 /HPF (0-3); SPECIFIC GRAVITY URINE AUTO 1.029 (1.002-1.035); SQUAMOUS EPITHELIAL CELL UR AU 6 /HPF (0-6); UROBILINOGEN, URINE AUTO 0.2 mg/dL (0.0-2.0); WBC, URINE AUTO 2 /HPF (0-3)
== END ==
LOC: M LAB REF 16:36
PROVIDERS: ATTEND Nurse Practitioner Women's Health
DX: N39.0 Urinary tract infection, site not specified (principal)